=== PATIENT | female | born 1940 | race Caucasian/White ===

== ENCOUNTER 2020-08-30 01:24 | Inpatient (IN) | payer MEDICARE, MEDICAID, SELFPAY ==
[2020-08-30] VITALS (14 sets, daily range): BP systolic 89–129; BP diastolic 33–66; PULSE 63–82; RESP 13–20; TEMP 36.3–36.7; O2SAT 92–99; BMI 27.8
--- NOTE | ~2020-08-30 | XR_ITS ---
EXAMINATION: XR CHEST CLINICAL INFORMATION: CHF COMPARISON: 11/15/2009 TECHNIQUE: Frontal view of the chest was obtained. FINDINGS: Lung volumes are low. Patient is rotated to the left which somewhat limits the assessment. Cardiac silhouette is within normal limits for technique. There is mild bibasilar atelectasis. Possible trace right pleural effusion. Pulmonary vasculature is unremarkable. No appreciable pulmonary edema. No pneumothorax or dense airspace consolidation. Degenerative disc disease is present in the thoracic spine. Bones are osteopenic. XR/XR chest 1V IMPRESSION: Low lung volumes with bibasilar atelectasis. Possible trace right pleural effusion.
--- NOTE | ~2020-08-30 | CT_ITS ---
EXAMINATION: CT ANGIOGRAM OF THE CHEST WITH AND WITHOUT CONTRAST (CT PULMONARY ANGIOGRAM FOR PE) CLINICAL INFORMATION: acute shortness of breath COMPARISON: None TECHNIQUE: Prior to contrast administration, noncontrast localization images were obtained. Subsequently, multidetector volumetric imaging was performed from the thoracic inlet to below the diaphragms following the administration of 65 mL Omnipaque 350 intravenous contrast. No contrast reaction reported Sagittal, coronal, and MIP oblique sagittal reformatted images were obtained on the CT workstation, uploaded to PACS, and reviewed. This CT examination was performed using dose optimization techniques as appropriate, variously including the following: *Automated exposure control *Adjustment of mA and/or kV according to patient size (this includes techniques or standardized protocols for targeted exams where dose is matched to indication/reason for exam; i.e. extremities or head) *Use of iterative reconstruction technique Total exam dose-length product 1513 mGy-cm FINDINGS: QUALITY OF STUDY/CONTRAST BOLUS: Satisfactory. PULMONARY ARTERIES: No central or segmental pulmonary emboli. THORACIC AORTA: No aneurysm or dissection. Calcific atherosclerosis is present throughout the thoracic aorta. LUNG: Mild centrilobular pulmonary emphysema. There is bibasilar segmental atelectasis in the lower lobes, left greater than right. No definite superimposed consolidation. Central airways are clear. PLEURA: No pleural effusion or pneumothorax. MEDIASTINUM: Normal thyroid gland. Heart is normal in size. Atherosclerotic calcifications are present in the coronary arteries. No mediastinal or hilar adenopathy. Moderate-sized hiatal hernia. No evidence of septal bowing or right heart strain. CHEST WALL/AXILLA: No axillary or internal mammary lymphadenopathy. OSSEOUS STRUCTURES: Bones are osteopenic. There are chronic appearing compression deformities at the superior endplates of T9, T10, T11, and T12. Superior endplate compression deformity at T4 is more age-indeterminate, though also favored to be chronic. No acute rib fractures are identified. UPPER ABDOMEN: Multiple discretely marginated hepatic hypodensities are favored to correspond to cysts. The largest of these is a 2.4 cm within hepatic segments 6/7 medially near the caudate lobe. No acute intra-abdominal findings. No reflux of contrast into the hepatic veins to suggest elevated right heart pressures. CT/CT angio chest PE protocol IMPRESSION: 1. No evidence of pulmonary emboli. 2. Dependent segmental atelectasis in the lower lobes bilaterally, left greater than right. No appreciable superimposed consolidation. 3. Mild centrilobular pulmonary emphysema. 4. Moderate-sized hiatal hernia. VTE: negative
--- NOTE | ~2020-08-30 | CT_ITS ---
EXAMINATION: CT HEAD WITHOUT CONTRAST CLINICAL INFORMATION: Unresponsive episode COMPARISON: Previous head CT November 2009 TECHNIQUE: Contiguous axial imaging was performed from the skull base to vertex without intravenous administration of contrast. This CT examination was performed using dose optimization techniques as appropriate, variously including the following: *Automated exposure control *Adjustment of mA and/or kV according to patient size (this includes techniques or standardized protocols for targeted exams where dose is matched to indication/reason for exam; i.e. extremities or head) *Use of iterative reconstruction technique DLP: 681 mGy-cm FINDINGS: There is no evidence of an extra-axial collection. There is no evidence of intra-axial or extra-axial hemorrhage. The ventricles and extra-axial CSF spaces are prominent suggestive of mild generalized atrophy. There is nonspecific periventricular white matter disease. No mass, mass effect or infarct is seen. The osseous structures and soft tissues are normal. The mastoid air cells and visualized portions of the paranasal sinuses are well aerated. CT/CT head/brain wo con IMPRESSION: No acute intracranial pathology. Generalized atrophy and nonspecific periventricular white matter disease.
--- NOTE | 2020-08-30 01:41 | PC.NURSE ---
ON BASELINE 02 SATURATION DECREASED TO 89%. PT SWITCHED TO VENTI MASK. TITRATED FOR SAT ABOVE 89%. pT SATING AT 91% VIA 12L AT 50%.
--- NOTE | 2020-08-30 01:55 | ED.SOB ---
HPI - SOB/Dyspnea General Chief Complaint: Dyspnea Stated Complaint: SOB PER SNF Time Seen by Provider: 08/30/20 01:55 Source: EMS and RN notes reviewed Mode of arrival: EMS History of Present Illness HPI Narrative: patient 80 years old DNR DNI from intermediate with history of COPD , paranoid schizophrenia, hypertension , dementia sent from intermediate for increased shortness of breath and decreased responsiveness and short of breath for last few hours chest x-ray was done which showed CHF when patient came she was saturating 88% on 1.5 L oxygen which she usually be on at intermediate blood pressure dropped to 84/51. At intermediate patient was given p.o. Lasix and Levaquin 250 mg which she choked and coughed it out no fever noticed on arrival Related Data Home Medications Medication Instructions Recorded Confirmed Al- w/ CLAU 08/30/20 08/30/20 acetaminophen 650 mg WV Q6H PRN 08/30/20 08/30/20 acetaminophen [Tylenol] 650 mg PO Q6H PRN 08/30/20 08/30/20 albuterol sulfate 2 inh INHALATION QID PRN 08/30/20 08/30/20 aspirin 81 mg PO DAILY 08/30/20 08/30/20 bisacodyl 10 mg W[place] DAILY PRN 08/30/20 08/30/20 clonazepam [Klonopin] 1 mg PO BEDTIME 08/30/20 08/30/20 furosemide [Lasix] 20 mg PO DAILY 08/30/20 08/30/20 gabapentin 400 mg PO BID 08/30/20 08/30/20 lamotrigine 75 mg PO BID 08/30/20 08/30/20 levofloxacin [Levaquin] 250 mg PO DAILY 08/30/20 08/30/20 magnesium hydroxide [Milk of 30 ml PO DAILY PRN 08/30/20 08/30/20 Magnesia] olanzapine [Zyprexa] 10 mg PO DAILY 08/30/20 08/30/20 olanzapine [Zyprexa] 20 mg PO QPM 08/30/20 08/30/20 phenytoin [Dilantin Infatabs] 300 mg PO DAILY 08/30/20 08/30/20 polyethylene glycol 3350 17 g PO DAILY 08/30/20 08/30/20 risperidone 2 mg PO BID 08/30/20 08/30/20 risperidone microspheres 50 mg IM Q14D 08/30/20 08/30/20 [Risperdal Consta] Allergies Allergy/AdvReac Type Severity Reaction Status Date / Time divalproex sodium Allergy Unknown UNKNOWN Unverified 11/18/19 14:33 [From Depakote] Review of Systems Review of Systems: Yes Unobtainable due to mental status ( dementia) FOR[facility]LY [facility] Past Medical History Medical History (Updated 08/30/20 @ 04:55 by Luis Fernando Choi MD) Atherosclerotic heart disease of [place] coronary artery with unspecified angina pectoris Bilateral cataracts Candidiasis of skin and nail Constipation COPD (chronic obstructive pulmonary disease) COVID-19 vaccine administered Degenerative disease of nervous system Diaphragmatic hernia DNI (do not intubate) DNR (do not resuscitate) Dysphagia Essential tremor Family history of diseases of the blood and blood-forming organs and certain disorders involving the immune mechanism GERD (gastroesophageal reflux disease) HTN (hypertension) Hyperlipidemia Incontinence Iron deficiency anemia Overactive bladder Paranoid schizophrenia Postmenopausal atrophic vaginitis Urinary tract infection Urine retention Vitamin B12 deficiency (dietary) anemia Vitamin D deficiency Social History Social History Advance Directives: No Advance Directives Information Provided: No Physical Exam Vital Signs: Vital Signs: Last Vital Signs Pulse 72 08/30/20 03:52 Resp 18 08/30/20 01:29 BP 129/54 L 08/30/20 01:29 Pulse Ox 94 08/30/20 01:29 Body Mass Index 27.8 Appearance: Alert. Oriented X2. moderate respiratory distress on Ventimask saturating 94% on 45% Eyes: PERRLA, No Nystagmus ENT: Pharynx normal. Oral Mucosa moist Neck: Normal inspection. Neck supple. CVS: Normal heart rate and rhythm. Pulses normal. Respiratory: moderate respiratory distress. Equal air entry bilateral, diffuse crackles bilaterally with wheezing Abdomen: Soft and nontender. Bowel sounds are present, no mass palpable, no CVA tenderness Skin: Skin warm and dry. Normal skin color. Normal skin turgor. Extremities: No lower extremity edema. No calf tenderness Neuro: Oriented X 3. No motor deficit. No sensory deficit.No cerebellar signs , cranial nerves II-XII intact MDM - SOB/Dyspnea MDM Narrative Medical decision making narrative: patient with acute increase in shortness of breath with normal BNP no history of CHF in the past chest x-ray with mild congestion? and left pleural effusion. Will get CTA chest to rule out PE CTA chest negative for PE showed atelectasis at bases will admit patient for COPD exacerbation possible aspiration pneumonia Differential Diagnosis Differential diagnosis: Likely acute exacerbation of chronic obstructive airways disease and congestive heart failure Lab Data Attestation: I reviewed the patient's lab results. Result diagrams: 08/30/20 01:56 08/30/20 01:56 Labs: Lab Results 08/30/20 08/30/20 08/30/20 Range/Units 01:56 01:56 01:56 WBC 8.9 (4.8-10.8) X10*3/uL RBC 3.75 L (4.20-5.50) X10*6/uL Hgb 11.8 L (12.0-16.0) g/dl Hct 37.8 (37-47) % MCV 100.8 H (80-98) fL MCH 31.5 (27.0-33.0) pg MCHC 31.2 (31.0-35.0) g/dl RDW 13.6 (11.0-16.0) % Plt Count 190 (160-400) X10*3/uL MPV 10.2 (9.4-12.3) fL Immature Gran % (Auto) 0.3 (0.0-0.4) % Neut % (Auto) 53.2 (45-73) % Lymph % (Auto) 31.9 (20-40) % Leslie % (Auto) 12.4 H (2-11) % Eos % (Auto) 2.0 (0-4) % Baso % (Auto) 0.2 (0-2) % Lymph # (Auto) 2.8 (1.2-4.9) X10*3/uL Leslie # (Auto) 1.1 (0.1-1.2) X10*3/uL Eos # (Auto) 0.2 (0.0-0.4) X10*3/uL Baso # (Auto) 0.0 (0.0-0.2) X10*3/uL Abs Immat Gran (auto) 0.03 (0.00-0.03) X10*3/uL Absolute Neuts (auto) 4.7 (2.0-8.3) X10*3/uL Absolute Nucleated RBC 0.000 (0.0-0.012) X10*3/uL Nucleated RBC % (auto) 0.0 (0.0-0.2) /100WBC VBG pH (7.32-7.43) VBG pCO2 mmHg VBG pO2 mmHg VBG HCO3 (22-26) mmol/L VBG O2 Saturation % VBG Base Excess mmol/L Sodium 144 (135-145) mmol/L Potassium 4.2 (3.3-5.1) mmol/L Chloride 105 (96-108) mmol/L Carbon Dioxide 31 H (22-29) mmol/L Anion Gap 12 (12-20) BUN 15 (9-16) mg/dL Creatinine 0.71 (0.5-1.4) mg/dL Estim Creat Clear Calc 51.3 Estimated GFR > 60 Random Glucose 92 (60-115) mg/dL Lactic Acid (0.5-2.0) mmol/L Calcium 8.6 (8.4-10.2) mg/dL Total Bilirubin 0.3 (0.0-1.0) mg/dL AST 18 (5-31) U/L ALT 13 (0-31) U/L Alkaline Phosphatase 159 H (39-117) U/L Troponin I High Sens 6.6 (<3.5-17.0) ng/L B-Natriuretic Peptide 20 (<100) pg/mL Total Protein 6.6 (6.5-8.0) g/dL Albumin 3.6 (3.5-5.0) g/dL Urine Color Urine Appearance Urine pH (5.0-8.0) Ur Specific [place] (1.005-1.025) Urine Protein (NEG-TRACE) MG/DL Urine Glucose (UA) (NEG) MG/DL Urine Ketones (NEG) MG/DL Urine Blood (NEG) Urine Nitrite (NEG) Ur Leukocyte Esterase (NEG) Urine RBC (0) /HPF Urine WBC (0-4) /HPF Ur Squamous Epith Cells /LPF Urine Bacteria /LPF Urine Mucus /LPF Phenytoin 10.4 (10.0-20.0) ug/mL COVID-19 (RODGER) (Negative) COVID-19 Clin Com 08/30/20 08/30/20 08/30/20 Range/Units 01:56 01:56 02:45 WBC (4.8-10.8) X10*3/uL RBC (4.20-5.50) X10*6/uL Hgb (12.0-16.0) g/dl Hct (37-47) % MCV (80-98) fL MCH (27.0-33.0) pg MCHC (31.0-35.0) g/dl RDW (11.0-16.0) % Plt Count (160-400) X10*3/uL MPV (9.4-12.3) fL Immature Gran % (Auto) (0.0-0.4) % Neut % (Auto) (45-73) % Lymph % (Auto) (20-40) % Leslie % (Auto) (2-11) % Eos % (Auto) (0-4) % Baso % (Auto) (0-2) % Lymph # (Auto) (1.2-4.9) X10*3/uL Leslie # (Auto) (0.1-1.2) X10*3/uL Eos # (Auto) (0.0-0.4) X10*3/uL Baso # (Auto) (0.0-0.2) X10*3/uL Abs Immat Gran (auto) (0.00-0.03) X10*3/uL Absolute Neuts (auto) (2.0-8.3) X10*3/uL Absolute Nucleated RBC (0.0-0.012) X10*3/uL Nucleated RBC % (auto) (0.0-0.2) /100WBC VBG pH (7.32-7.43) VBG pCO2 mmHg VBG pO2 mmHg VBG HCO3 (22-26) mmol/L VBG O2 Saturation % VBG Base Excess mmol/L Sodium (135-145) mmol/L Potassium (3.3-5.1) mmol/L Chloride (96-108) mmol/L Carbon Dioxide (22-29) mmol/L Anion Gap (12-20) BUN (9-16) mg/dL Creatinine (0.5-1.4) mg/dL Estim Creat Clear Calc Estimated GFR Random Glucose (60-115) mg/dL Lactic Acid 0.6 (0.5-2.0) mmol/L Calcium (8.4-10.2) mg/dL Total Bilirubin (0.0-1.0) mg/dL AST (5-31) U/L ALT (0-31) U/L Alkaline Phosphatase (39-117) U/L Troponin I High Sens (<3.5-17.0) ng/L B-Natriuretic Peptide (<100) pg/mL Total Protein (6.5-8.0) g/dL Albumin (3.5-5.0) g/dL Urine Color YELLOW Urine Appearance CLOUDY Urine pH 7.0 (5.0-8.0) Ur Specific [place] 1.015 (1.005-1.025) Urine Protein TRACE (NEG-TRACE) MG/DL Urine Glucose (UA) NEG (NEG) MG/DL Urine Ketones NEG (NEG) MG/DL Urine Blood NEG (NEG) Urine Nitrite NEG (NEG) Ur Leukocyte Esterase 2+ H (NEG) Urine RBC 1-4 (0) /HPF Urine WBC 10-14 H (0-4) /HPF Ur Squamous Epith Cells 2+ /LPF Urine Bacteria 4+ /LPF Urine Mucus 1+ /LPF Phenytoin (10.0-20.0) ug/mL COVID-19 ([facility]GER) Negative (Negative) COVID-19 Clin Com See Note 08/30/20 Range/Units 02:47 WBC (4.8-10.8) X10*3/uL RBC (4.20-5.50) X10*6/uL Hgb (12.0-16.0) g/dl Hct (37-47) % MCV (80-98) fL MCH (27.0-33.0) pg MCHC (31.0-35.0) g/dl RDW (11.0-16.0) % Plt Count (160-400) X10*3/uL MPV (9.4-12.3) fL Immature Gran % (Auto) (0.0-0.4) % Neut % (Auto) (45-73) % Lymph % (Auto) (20-40) % Leslie % (Auto) (2-11) % Eos % (Auto) (0-4) % Baso % (Auto) (0-2) % Lymph # (Auto) (1.2-4.9) X10*3/uL Leslie # (Auto) (0.1-1.2) X10*3/uL Eos # (Auto) (0.0-0.4) X10*3/uL Baso # (Auto) (0.0-0.2) X10*3/uL Abs Immat Gran (auto) (0.00-0.03) X10*3/uL Absolute Neuts (auto) (2.0-8.3) X10*3/uL Absolute Nucleated RBC (0.0-0.012) X10*3/uL Nucleated RBC % (auto) (0.0-0.2) /100WBC VBG pH 7.42 (7.32-7.43) VBG pCO2 54 mmHg VBG pO2 116 mmHg VBG HCO3 36 H (22-26) mmol/L VBG O2 Saturation 98.0 % VBG Base Excess 9.8 mmol/L Sodium (135-145) mmol/L Potassium (3.3-5.1) mmol/L Chloride (96-108) mmol/L Carbon Dioxide (22-29) mmol/L Anion Gap (12-20) BUN (9-16) mg/dL Creatinine (0.5-1.4) mg/dL Estim Creat Clear Calc Estimated GFR Random Glucose (60-115) mg/dL Lactic Acid (0.5-2.0) mmol/L Calcium (8.4-10.2) mg/dL Total Bilirubin (0.0-1.0) mg/dL AST (5-31) U/L ALT (0-31) U/L Alkaline Phosphatase (39-117) U/L Troponin I High Sens (<3.5-17.0) ng/L B-Natriuretic Peptide (<100) pg/mL Total Protein (6.5-8.0) g/dL Albumin (3.5-5.0) g/dL Urine Color Urine Appearance Urine pH (5.0-8.0) Ur Specific [place] (1.005-1.025) Urine Protein (NEG-TRACE) MG/DL Urine Glucose (UA) (NEG) MG/DL Urine Ketones (NEG) MG/DL Urine Blood (NEG) Urine Nitrite (NEG) Ur Leukocyte Esterase (NEG) Urine RBC (0) /HPF Urine WBC (0-4) /HPF Ur Squamous Epith Cells /LPF Urine Bacteria /LPF Urine Mucus /LPF Phenytoin (10.0-20.0) ug/mL COVID-19 ([facility]GER) (Negative) COVID-19 Clin Com ECG Data Attestation: I personally reviewed and interpreted this ECG as follows: Interpretation: normal sinus rhythm heart rate 77 beats per minute poor progression of R-wave no acute ST T wave changes no acute ischemia Discharge Plan Discharge Clinical Impression: Acute exacerbation of chronic obstructive airways disease Aspiration pneumonia Qualifiers: Aspiration pneumonia type: unspecified Laterality: bilateral Lung location: lower lobe of lung Qualified Code(s): J69.0 - Pneumonitis due to inhalation of food and vomit Patient Disposition: Admitted As Inpatient
[2020-08-30 02:05] LABS: MANUAL DIFF FLAG NO
[2020-08-30 02:06] LABS: Basophils Percent Auto 0.2 % (0-2); Eosinophils Absolute Auto 0.2 X10*3/uL (0.0-0.4); Hematocrit 37.8 % (37-47); Hemoglobin 11.8 g/dl (12.0-16.0); Imm Gran Abs Auto 0.03 X10*3/uL (0.00-0.03); Imm Gran Pct Auto 0.3 % (0.0-0.4); Lymphocytes Absolute Auto 2.8 X10*3/uL (1.2-4.9); Lymphocytes Percent Auto 31.9 % (20-40); Mean Corpuscular HGB Conc 31.2 g/dl (31.0-35.0); Mean Corpuscular Hemoglobin 31.5 pg (27.0-33.0); Mean Corpuscular Volume 100.8 fL (80-98); Mean Platelet Volume 10.2 fL (9.4-12.3); Monocytes Absolute Auto 1.1 X10*3/uL (0.1-1.2); Monocytes Percent Auto 12.4 % (2-11); Neutrophils Absolute Auto 4.7 X10*3/uL (2.0-8.3); Neutrophils Percent Auto 53.2 % (45-73); Platelet Count 190 X10*3/uL (160-400); Red Blood Count 3.75 X10*6/uL (4.20-5.50); Red Cell Distribution Width 13.6 % (11.0-16.0); White Blood Count 8.9 X10*3/uL (4.8-10.8)
--- NOTE | 2020-08-30 02:12 | ECG_ITS ---
Test Reason : SOB Blood Pressure : / mmHG Vent. Rate : 077 BPM Atrial Rate : 077 BPM P-R Int : 156 ms QRS Dur : 080 ms QT Int : 388 ms P-R-T Axes : 023 018 051 degrees QTc Int : 439 ms Normal sinus rhythm Inferior infarct , age undetermined Anteroseptal infarct , age undetermined Abnormal ECG When compared with ECG of 15-NOV-2009 16:45, Premature atrial complexes are no longer Present Anteroseptal infarct is now Present Nonspecific T wave abnormality has replaced inverted T waves in Inferior leads Nonspecific T wave abnormality now evident in Anterior leads Referred By: Luis Fernando Choi Electronically Signed By:FLORENTIN CORADO MD
[2020-08-30 02:22] LABS: COVID-19 Test Negative (Negative); IDNOW Serial# 9DD0AD1C
[2020-08-30] MEDS: Furosemide 20 MG/2 ML VIAL IVPUSH (02:30)
[2020-08-30 02:31] LABS: Lactic Acid 0.6 mmol/L (0.5-2.0)
[2020-08-30 02:39] LABS: Alanine Aminotransferase 13 U/L (0-31); Albumin Level 3.6 g/dL (3.5-5.0); Alkaline Phosphatase 159 U/L (39-117); Anion Gap 12 (12-20); Aspartate Amino Transferase 18 U/L (5-31); Bilirubin Total 0.3 mg/dL (0.0-1.0); Blood Urea Nitrogen 15 mg/dL (9-16); Calcium 8.6 mg/dL (8.4-10.2); Carbon Dioxide 31 mmol/L (22-29); Chloride 105 mmol/L (96-108); Creatinine Clr Calc Pharmacy 51.3; Estimated Glomerular Filt Rate > 60; Glucose Random 92 mg/dL (60-115); Potassium 4.2 mmol/L (3.3-5.1); Sodium 144 mmol/L (135-145); Total Protein 6.6 g/dL (6.5-8.0)
[2020-08-30 02:42] LABS: B Type Natriuretic Peptide 20 pg/mL (<100); Troponin-I High Sensitivity 6.6 ng/L (<3.5-17.0)
[2020-08-30 02:55] LABS: Glucose Urine UA NEG (NEG); Leukocyte Esterase Urine 2+ (NEG); Nitrite Urine NEG (NEG); Specific Gravity - Urine 1.015 (1.005-1.025); UACC Culture Trigger YES; Urine Blood NEG (NEG); Urine Ketones NEG (NEG); Urine Protein TRACE MG/DL (NEG-TRACE)
[2020-08-30 02:56] LABS: Appearance Urine CLOUDY; Color Urine YELLOW
[2020-08-30 02:58] LABS: Venous Blood Gas Refer to POC result
[2020-08-30 02:59] LABS: VBG Base Excess 9.8 mmol/L; VBG HCO3 36 mmol/L (22-26); VBG pCO2 54 mmHg; VBG pH 7.42 (7.32-7.43); VBG pO2 116 mmHg
[2020-08-30 03:01] LABS: Bacteria Urine 4+ /LPF; Mucus Urine 1+ /LPF; Squamous Epithelial Cell Urine 2+ /LPF
--- NOTE | 2020-08-30 03:38 | PC.NURSE ---
REPORT FROM YOEL OLIVARES AT 03:00
[2020-08-30 03:40] LABS: Phenytoin Dilantin 10.4 ug/mL (10.0-20.0)
[2020-08-30] MEDS: Albuterol/Iprat 2.5/0.5MG 3 ML AMPUL.NEB INHALE ×5 (03:49→19:35)
[2020-08-30] MEDS: iohexoL 350 MG/ML 100 ML INFUS..BTL 65 ML IV (03:52)
--- NOTE | 2020-08-30 05:04 | PC.NURSE ---
pt on venti mask at 4l/30 %. pt sleeping, spo2 84%. once pt is awake, spo2 improves to 95%.
[2020-08-30] MEDS: Piperacillin Sodium/Tazobactam 3.375 GM in 0.9 % Sodium Chloride 50 ML IV (05:06)
[2020-08-30] MEDS: methylPREDNISolone Sod Succ 125 MG/2 ML VIAL 60 MG IVPUSH (05:06)
--- NOTE | 2020-08-30 05:18 | PC.NURSE ---
er aware pt's map below 60.
[2020-08-30] MEDS: 0.9 % Sodium Chloride 1,000 ML 999 ML IVCONT (05:26)
--- NOTE | 2020-08-30 06:10 | PC.NURSE ---
HOSPITALIST SPEAKING TO DAUGHTER BY PHONE, REPORTS THAT AT BASELINE PATIENT IS AWAKE AND ALERT, ABLE TO CARRY ON A CONVERSATION AND DOES TAKE P.O. MEDICATIONS WITHOUT A PROBLEM. FAMILY OK WITH PATIENT BEING ADMITTED. PT DIFFICULT TO WAKE, WILL NOT ANSWER QUESTIONS OR STAY AWAKE FOR HOSPITALIST.
--- NOTE | 2020-08-30 06:13 | P.HPHOSP_ITS ---
History of Present Illness Date of Service: 08/30/20 Chief Complaint: unresponsive 78-year-old female with extensive past medical history that includes COPD, dysphagia, HTN, CAD, paranoid schizophrenia, among others who presents to the hospital from SNF due to decreased responsiveness for 3-4 hours. Patient herself is very somnolent, very difficult to arouse, apparently when she came into the ED she was more responsive but right now she is not talking. I called her daughter she said she has schizophrenia at baseline but usually converses normally. According to the notes from [facility] patient was treated for CHF after an x-ray was done yesterday showing pulmonary congestion. on her arrival to the ED patient hemodynamically stable with no significant abnormal vitals. Patient did desatted to the 80s while in the ED, she is now on 4 L of Venturi mask. Labs are significant for WBC count of 8.9, hemoglobin of 11.8, VBG that shows pH of 7.42, CO2 of 54, otherwise unremarkable. BNP of 20. UA shows leukocyte Estrace and WBC, chest CT angiogram shows no evidence of pulmonary emboli. Dependent segmental atelectasis in the lower lobes bilaterally, left greater than right, no appreciable superimposed consolidation, mild central lobar pulmonary is emphysema, hiatal hernia patient initially was given 20 mg of IV Lasix but after the CT results patient now given IV bolus as she also developed hypotension unable to review of system is patient on responsive Review of Systems Review of Systems: Yes all other systems are reviewed and are negative [facility] Medical History Atherosclerotic heart disease of [place] coronary artery with unspecified angina pectoris Bilateral cataracts Candidiasis of skin and nail Constipation COPD (chronic obstructive pulmonary disease) COVID-19 vaccine administered Degenerative disease of nervous system Diaphragmatic hernia DNI (do not intubate) DNR (do not resuscitate) Dysphagia Essential tremor Family history of diseases of the blood and blood-forming organs and certain disorders involving the immune mechanism GERD (gastroesophageal reflux disease) HTN (hypertension) Hyperlipidemia Incontinence Iron deficiency anemia Overactive bladder Paranoid schizophrenia Postmenopausal atrophic vaginitis Urinary tract infection Urine retention Vitamin B12 deficiency (dietary) anemia Vitamin D deficiency Social History Advance Directives: No Advance Directives Information Provided: No Meds Allergies Allergy/AdvReac Type Severity Reaction Status Date / Time divalproex sodium Allergy Unknown UNKNOWN Verified 08/30/20 06:22 [From Depakote] Active Medications: Current Medications Generic Name Dose Route Start Last Admin Trade Name Freq PRN Reason Stop Dose Admin Acetaminophen 650 mg 08/30/20 05:18 Acetaminophen 325 Mg Tablet PO Q6H PRN Pain, Mild (Pain Scale 1-3) Albuterol Sulfate 2 puff 08/30/20 05:18 Albuterol Sulfate 90 Mcg 8 Gm Inhaler INHALE QID PRN Wheezing Albuterol/Ipratropium 3 ml 08/30/20 08:00 Albuterol/Iprat 2.5/0.5mg 3 Ml Ampul.Neb INHALE RQ4H WHILE AWAKE CHLOE Albuterol/Ipratropium 3 ml 08/30/20 05:18 Albuterol/Iprat 2.5/0.5mg 3 Ml Ampul.Neb INHALE RQ4H PRN Shortness of Breath/Wheezing Aspirin 81 mg 08/30/20 09:00 Aspirin 81 Mg Tab.Chew PO DAILY CHLOE Bisacodyl 10 mg 08/30/20 05:18 Bisacodyl 10 Mg Supp.Rect [place] DAILY PRN Constipation Clonazepam 1 mg 08/30/20 21:00 Clonazepam 1 Mg Tablet PO BEDTIME CHLOE Docusate Sodium 100 mg 08/30/20 05:18 Docusate Sodium 100 Mg Capsule PO DAILY PRN Constipation Gabapentin 400 mg 08/30/20 09:00 Gabapentin 400 Mg Capsule PO BID [facility] Heparin Sodium (Porcine) 5,000 unit 08/30/20 07:00 Heparin Sodium,Porcine 5,000 Unit/Ml Vial SUBCUT Q12H [facility] Sodium Chloride 1,000 mls @ 999 mls/hr 08/30/20 05:30 08/30/20 05:26 Ns IVCONT 08/30/20 06:30 999 mls/hr .Q1H1M CHLOE Administration Lamotrigine 75 mg 08/30/20 09:00 Lamotrigine 25 Mg Tablet PO BID [facility]LOE Levofloxacin 250 mg 08/30/20 09:00 Levofloxacin 250 Mg Tablet PO DAILY [facility]LOE Magnesium Hydroxide 30 ml 08/30/20 05:18 Milk Of Magnesia 30 Ml Oral.Susp PO DAILY PRN Constipation Methylprednisolone Sodium Succinate 40 mg 08/30/20 17:00 Methylprednisolone Sod Succ 40 Mg/Ml Vial IVPUSH Q12H [facility] Non-Formulary Medication 50 mg 08/30/20 05:18 Risperidone Microspheres [Risperdal Consta] IM Q14D [facility] Olanzapine 10 mg 08/30/20 09:00 Olanzapine 10 Mg Tablet PO DAILY [facility] Olanzapine 20 mg 08/30/20 21:00 Olanzapine 10 Mg Tablet PO BEDTIME [facility] Ondansetron HCl 4 mg 08/30/20 05:18 Ondansetron Hcl 4 Mg/2 Ml Vial IVPUSH Q8H PRN Nausea and Vomiting Phenytoin 300 mg 08/30/20 09:00 Phenytoin Chewable 50 Mg Tab.Chew PO DAILY [facility] Polyethylene Glycol 17 gm 08/30/20 09:00 Polyethylene Glycol 3350 17 Gm Powd.Pack PO DAILY [facility] Risperidone 2 mg 08/30/20 09:00 Risperidone 2 Mg Tablet PO BID [facility] Sodium Chloride 3 ml 08/30/20 08:00 0.9 % Sodium Chloride Flush 3 Ml Syringe IVFLUSH QSHIFT [facility] Home Medications Medication Instructions Recorded Confirmed Last Taken Type Al-Mag w/ SIM 08/30/20 08/30/20 Unknown History acetaminophen 650 mg IL Q6H PRN 08/30/20 08/30/20 Unknown History acetaminophen [Tylenol] 650 mg PO Q6H PRN 08/30/20 08/30/20 Unknown History albuterol sulfate 2 inh INHALATION QID PRN 08/30/20 08/30/20 Unknown History aspirin 81 mg PO DAILY 08/30/20 08/30/20 Unknown History bisacodyl 10 mg [place] DAILY PRN 08/30/20 08/30/20 Unknown History clonazepam [Klonopin] 1 mg PO BEDTIME 08/30/20 08/30/20 Unknown History furosemide [Lasix] 20 mg PO DAILY 08/30/20 08/30/20 Unknown History gabapentin 400 mg PO BID 08/30/20 08/30/20 Unknown History lamotrigine 75 mg PO BID 08/30/20 08/30/20 Unknown History levofloxacin [Levaquin] 250 mg PO DAILY 08/30/20 08/30/20 Unknown History magnesium hydroxide [Milk of 30 ml PO DAILY PRN 08/30/20 08/30/20 Unknown History Magnesia] olanzapine [Zyprexa] 10 mg PO DAILY 08/30/20 08/30/20 Unknown History olanzapine [Zyprexa] 20 mg PO QPM 08/30/20 08/30/20 Unknown History phenytoin [Dilantin Infatabs] 300 mg PO DAILY 08/30/20 08/30/20 Unknown History polyethylene glycol 3350 17 g PO DAILY 08/30/20 08/30/20 Unknown History risperidone 2 mg PO BID 08/30/20 08/30/20 Unknown History risperidone microspheres 50 mg IM Q14D 08/30/20 08/30/20 Unknown History [Risperdal Consta] Physical Exam 2 Vital Signs and Narrative: Vital Signs: Last Vital Signs Pulse 78 08/30/20 05:16 Resp 17 08/30/20 05:16 BP 97/41 L 08/30/20 05:16 Pulse Ox 92 08/30/20 05:16 Body Mass Index 27.8 Const: Other: very somnolent, difficult to arouse Eyes: General: appearance normal, both eyes and all related structures Resp: Effort & Inspection: normal respiratory effort, able to speak in complete sentences and abnormal respiratory pattern Cardio: Rate: regular rate Rhythm: regular rhythm GI: Palpation (GI): Soft to palpation Auscultation: normal bowel sounds Skin: General skin exam: no rashes or lesions noted Neuro: Cognition (Neuro): normal cognition Extrem: General: Yes normal to inspection and Yes no pedal edema Results Labs CBC and Chem 7: 08/30/20 01:56 08/30/20 01:56 Labs: Laboratory Results - last 24 hr 08/30/20 08/30/20 08/30/20 01:56 01:56 01:56 MCV 100.8 H MCH 31.5 MCHC 31.2 RDW 13.6 Plt Count 190 MPV 10.2 Immature Gran % (Auto) 0.3 Neut % (Auto) 53.2 Lymph % (Auto) 31.9 [place] % (Auto) 12.4 H Eos % (Auto) 2.0 Baso % (Auto) 0.2 Lymph # (Auto) 2.8 [place] # (Auto) 1.1 Eos # (Auto) 0.2 Baso # (Auto) 0.0 Abs Immat Gran (auto) 0.03 Absolute Neuts (auto) 4.7 Absolute Nucleated RBC 0.000 Nucleated RBC % (auto) 0.0 VBG pH VBG pCO2 VBG pO2 VBG HCO3 VBG O2 Saturation VBG Base Excess Anion Gap 12 Estim Creat Clear Calc 51.3 Estimated GFR > 60 Random Glucose 92 Lactic Acid Calcium 8.6 Total Bilirubin 0.3 AST 18 ALT 13 Alkaline Phosphatase 159 H Troponin I High Sens 6.6 B-Natriuretic Peptide 20 Total Protein 6.6 Albumin 3.6 Urine Color Urine Appearance Urine pH Ur Specific [place] Urine Protein Urine Glucose (UA) Urine Ketones Urine Blood Urine Nitrite Ur Leukocyte Esterase Urine RBC Urine WBC Ur Squamous Epith Cells Urine Bacteria Urine Mucus Phenytoin 10.4 COVID-19 ([facility]) COVID-19 Clin Com 08/30/20 08/30/20 08/30/20 01:56 01:56 02:45 MCV MCH MCHC RDW Plt Count MPV Immature Gran % (Auto) Neut % (Auto) Lymph % (Auto) [place] % (Auto) Eos % (Auto) Baso % (Auto) Lymph # (Auto) [place] # (Auto) Eos # (Auto) Baso # (Auto) Abs Immat Gran (auto) Absolute Neuts (auto) Absolute Nucleated RBC Nucleated RBC % (auto) VBG pH VBG pCO2 VBG pO2 VBG HCO3 VBG O2 Saturation VBG Base Excess Anion Gap Estim Creat Clear Calc Estimated GFR Random Glucose Lactic Acid 0.6 Calcium Total Bilirubin AST ALT Alkaline Phosphatase Troponin I High Sens B-Natriuretic Peptide Total Protein Albumin Urine Color YELLOW Urine Appearance CLOUDY Urine pH 7.0 Ur Specific [place] 1.015 Urine Protein TRACE Urine Glucose (UA) NEG Urine Ketones NEG Urine Blood NEG Urine Nitrite NEG Ur Leukocyte Esterase 2+ H Urine RBC 1-4 Urine WBC 10-14 H Ur Squamous Epith Cells 2+ Urine Bacteria 4+ Urine Mucus 1+ Phenytoin COVID-19 ([facility]) Negative COVID-19 Clin Com See Note 08/30/20 02:47 MCV MCH MCHC RDW Plt Count MPV Immature Gran % (Auto) Neut % (Auto) Lymph % (Auto) [place] % (Auto) Eos % (Auto) Baso % (Auto) Lymph # (Auto) [place] # (Auto) Eos # (Auto) Baso # (Auto) Abs Immat Gran (auto) Absolute Neuts (auto) Absolute Nucleated RBC Nucleated RBC % (auto) VBG pH 7.42 VBG pCO2 54 VBG pO2 116 VBG HCO3 36 H VBG O2 Saturation 98.0 VBG Base Excess 9.8 Anion Gap Estim Creat Clear Calc Estimated GFR Random Glucose Lactic Acid Calcium Total Bilirubin AST ALT Alkaline Phosphatase Troponin I High Sens B-Natriuretic Peptide Total Protein Albumin Urine Color Urine Appearance Urine pH Ur Specific [place] Urine Protein Urine Glucose (UA) Urine Ketones Urine Blood Urine Nitrite Ur Leukocyte Esterase Urine RBC Urine WBC Ur Squamous Epith Cells Urine Bacteria Urine Mucus Phenytoin COVID-19 ([facility]) COVID-19 Clin Com Imaging Radiologist's Impressions: Impressions Chest X-Ray 08/30/20 02:14 IMPRESSION: Low lung volumes with bibasilar atelectasis. Possible trace right pleural effusion. Chest CTA 08/30/20 03:00 IMPRESSION: 1. No evidence of pulmonary emboli. 2. Dependent segmental atelectasis in the lower lobes bilaterally, left greater than right. No appreciable superimposed consolidation. 3. Mild centrilobular pulmonary emphysema. 4. Moderate-sized hiatal hernia. VTE: negative Assessment and Plan (1) Encephalopathy: Status: Acute (2) UTI (urinary tract infection): Status: Acute (3) Acute and chronic respiratory failure with hypoxia: Status: Acute (4) Acute exacerbation of chronic obstructive airways disease: Status: Acute 80-year-old female with extensive past medical history who [facility] # encephalopathy - most likely secondary to acute UTI - no evidence of pneumonia, no evidence of other infections - afebrile, no leukocytosis - apparently patient had UTI at the [facility] and was being treated with levofloxacin 250 mg - given her positive UA will treat her wrist IV ceftriaxone - will order has CT to rule out any other etiology for her encephalopathy - follow mentation # UTI - positive UA, unable to evaluate symptoms - will treat her with IV ceftriaxone - follow cultures # acute hypoxic respiratory failure - most likely secondary to COPD exacerbation, has low BNP, no evidence of pulmonary congestion on CT angiogram, no evidence of PE - IV Solu-Medrol 40 b.i.d., DuoNeb p.r.n. as well as - titrate oxygen office tolerated # COPD exacerbation - management as above # paranoid schizophrenia - continue home medications # dysphagia - will try to contact [facility] for diet # CHF - patient does not appear to be in exacerbation, low BNP, no CT evidence of pulmonary congestion - continue home Lasix of 20 mg daily DVT prophylaxis: Heparin subQ Quality Stroke Does the patient have a stroke diagnosis?: No VTE Prior VTE?: No VTE Risk Level:: Medical - moderate - high VTE Device Contraindication: Treatment Not Indicated VTE Drug Contraindication: N/A - Med Ordered
--- NOTE | 2020-08-30 06:22 | PC.NURSE ---
mar from snf reports that pt may have p.o. medications crushed and mixed with food. pt has hx of dysphasia.
--- NOTE | 2020-08-30 06:45 | PC.NURSE ---
PT AWOKE TO TOUCH, ABLE TO HOLD A SHORT COVERSATION. PT STATES I DON'T KNOW WHERE I AM.
--- NOTE | 2020-08-30 07:03 | PC.NURSE ---
PT REPORT GIVEN TO RN ON FLOOR. PT READY FOR TRANSPORT.
[2020-08-30 08:07] LABS: Lactic Acid 0.7 mmol/L (0.5-2.0)
--- NOTE | 2020-08-30 08:23 | HE.PHANOTE ---
Pt is on Risperdal Consta 50mg last give 08/24/2020. Next dose is due 09/07/2020 [facility], nurse reports that they will deliever medication if patient is still here. MD karishma Naranjo, PharmD
[2020-08-30] MEDS: Heparin Sodium,Porcine 5,000 UNIT/ML VIAL 5000 UNIT SUBCUT ×2 (08:55→18:22)
[2020-08-30] MEDS: 0.9 % Sodium Chloride Flush 3 ML SYRINGE IVFLUSH ×2 (08:56→20:19)
[2020-08-30] MEDS: cefTRIAXone sodium 1 GM in 0.9 % Sodium Chloride 50 ML IV (09:34)
--- NOTE | 2020-08-30 10:06 | MHC.CM.PN ---
IMM08/30/20 Female 80 DX COPD exacerbation UTI Patient lives @ [facility]. Dtr Marimar HCP. Copy requested from facility. She is WC bound. She is able to transfer with assistance. She is somnolent now. Information has been collected from EMR, SNF documentation as well as Pts Dtr HCP MIRTHA. Medicare rights delivered verbally to HCP. IMM was understood. DP return to [facility] via BLS.
[2020-08-30] MEDS: 0.9 % Sodium Chloride 1,000 ML 75 ML IVCONT (13:49)
[2020-08-30] MEDS: methylPREDNISolone Sod Succ 40 MG/ML VIAL IVPUSH (17:52)
[2020-08-30] MEDS: lamoTRIgine 25 MG TABLET 75 MG PO (20:18)
[2020-08-30] MEDS: risperiDONE 2 MG TABLET PO (20:19)
[2020-08-30] MEDS: Gabapentin 400 MG CAPSULE PO (20:19)
[2020-08-30] MEDS: OLANZapine 10 MG TABLET 20 MG PO (20:19)
[2020-08-30] MEDS: clonazePAM 1 MG TABLET PO (20:19)
[2020-08-31] VITALS (10 sets, daily range): BP systolic 132–154; BP diastolic 60–68; PULSE 61–79; RESP 17–18; TEMP 36–36.7; O2SAT 90–97; BMI 27.3
[2020-08-31] MEDS: methylPREDNISolone Sod Succ 40 MG/ML VIAL IVPUSH (05:43)
[2020-08-31] MEDS: Heparin Sodium,Porcine 5,000 UNIT/ML VIAL 5000 UNIT SUBCUT ×2 (05:43→18:29)
[2020-08-31] MEDS: 0.9 % Sodium Chloride 1,000 ML 75 ML IVCONT (05:43)
[2020-08-31 06:53] LABS: MANUAL DIFF FLAG NO
[2020-08-31 07:02] LABS: Basophils Percent Auto 0.1 % (0-2); Eosinophils Percent Auto 0.4 % (0-4); Hematocrit 34.8 % (37-47); Hemoglobin 11.1 g/dl (12.0-16.0); Imm Gran Abs Auto 0.02 X10*3/uL (0.00-0.03); Imm Gran Pct Auto 0.3 % (0.0-0.4); Lymphocytes Absolute Auto 2.5 X10*3/uL (1.2-4.9); Lymphocytes Percent Auto 36.4 % (20-40); Mean Corpuscular HGB Conc 31.9 g/dl (31.0-35.0); Mean Corpuscular Hemoglobin 32.2 pg (27.0-33.0); Mean Corpuscular Volume 100.9 fL (80-98); Mean Platelet Volume 10.5 fL (9.4-12.3); Monocytes Absolute Auto 0.7 X10*3/uL (0.1-1.2); Monocytes Percent Auto 10.3 % (2-11); Neutrophils Absolute Auto 3.5 X10*3/uL (2.0-8.3); Neutrophils Percent Auto 52.5 % (45-73); Platelet Count 196 X10*3/uL (160-400); Red Blood Count 3.45 X10*6/uL (4.20-5.50); Red Cell Distribution Width 13.2 % (11.0-16.0); White Blood Count 6.7 X10*3/uL (4.8-10.8)
[2020-08-31] MEDS: Albuterol/Iprat 2.5/0.5MG 3 ML AMPUL.NEB INHALE ×4 (07:44→20:17)
[2020-08-31 07:54] LABS: Anion Gap 10 (12-20); Blood Urea Nitrogen 14 mg/dL (9-16); Calcium 8.3 mg/dL (8.4-10.2); Carbon Dioxide 32 mmol/L (22-29); Chloride 105 mmol/L (96-108); Creatinine Clr Calc Pharmacy 62.1; Estimated Glomerular Filt Rate > 60; Glucose Random 81 mg/dL (60-115); Potassium 3.8 mmol/L (3.3-5.1); Sodium 143 mmol/L (135-145)
--- NOTE | 2020-08-31 11:20 | MHC.CM.PN ---
Female 80 dx UTI She was somnolent yesterday. Today she is awake and speaking. Reported Improvement to Pts DTR via phone. CM will follow.
[2020-08-31] MEDS: Aspirin 81 MG TAB.CHEW PO (11:51)
[2020-08-31] MEDS: Gabapentin 400 MG CAPSULE PO (11:51)
[2020-08-31] MEDS: OLANZapine 10 MG TABLET PO (11:51)
[2020-08-31] MEDS: lamoTRIgine 25 MG TABLET 75 MG PO ×2 (12:00→21:34)
[2020-08-31] MEDS: risperiDONE 2 MG TABLET PO ×2 (12:01→21:34)
[2020-08-31] MEDS: polyethylene glycoL 3350 17 GM POWD.PACK PO (12:01)
[2020-08-31] MEDS: cefTRIAXone sodium 1 GM in 0.9 % Sodium Chloride 50 ML IV (12:30)
--- NOTE | 2020-08-31 14:55 | HO.PM.IMPN ---
Subjective Subjective Date of Service: 08/31/20 Interval History: patient awake alert answering questions appropriately denies headache, denies urinary symptoms of urgency frequency no cough, no acute issues noted overnight ROS General no headache, no dizziness, no fever chills. CVS no chest pain, no palpitation. Respiratory no cough, no sob. Gastrointestinal no nausea no vomiting, no abdominal pain Physical Exam Vital Signs: Vital Signs: Last Vital Signs Temp 97.7 F 08/31/20 11:30 Pulse 78 08/31/20 11:32 Resp 18 08/31/20 11:30 BP 154/68 H 08/31/20 11:30 Pulse Ox 90 L 08/31/20 11:30 Body Mass Index 27.3 General resting comfortably ,no acute distress. Neck supple no JVD. CVS regular rate rhythm, Respiratory lungs clear to auscultation, no respiratory distress, no wheeze, no rhonchi. Gastrointestinal abdomen soft, nontender, bowel sounds audible, no guarding , no rigidity. Extremities no edema. Neuro nonfocal , speech clear. Skin no rash Objective Data Current Medications Generic Name Dose Route Start Last Admin Trade Name Freq PRN Reason Stop Dose Admin Acetaminophen 650 mg 08/30/20 05:18 Acetaminophen 325 Mg Tablet PO Q6H PRN Pain, Mild (Pain Scale 1-3) Albuterol Sulfate 2 puff 08/30/20 05:18 Albuterol Sulfate 90 Mcg 8 Gm Inhaler INHALE QID PRN Wheezing Albuterol/Ipratropium 3 ml 08/30/20 08:00 08/31/20 11:29 Albuterol/Iprat 2.5/0.5mg 3 Ml Ampul.Neb INHALE 3 ml RQ4H WHILE AWAKE CHLOE Administration Albuterol/Ipratropium 3 ml 08/30/20 05:18 Albuterol/Iprat 2.5/0.5mg 3 Ml Ampul.Neb INHALE RQ4H PRN Shortness of Breath/Wheezing Aspirin 81 mg 08/30/20 09:00 08/31/20 11:51 Aspirin 81 Mg Tab.Chew PO 81 mg DAILY CHLOE Administration Bisacodyl 10 mg 08/30/20 05:18 Bisacodyl 10 Mg Supp.Rect [place] DAILY PRN Constipation Clonazepam 1 mg 08/30/20 21:00 08/30/20 20:19 Clonazepam 1 Mg Tablet PO 1 mg BEDTIME CHLOE Administration Docusate Sodium 100 mg 08/30/20 05:18 Docusate Sodium 100 Mg Capsule PO DAILY PRN Constipation Gabapentin 400 mg 08/30/20 09:00 08/31/20 11:51 Gabapentin 400 Mg Capsule PO 400 mg BID CHLOE Administration Heparin Sodium (Porcine) 5,000 unit 08/30/20 07:00 08/31/20 05:43 Heparin Sodium,Porcine 5,000 Unit/Ml Vial SUBCUT 5,000 unit Q12H CHLOE Administration Ceftriaxone Sodium 1 gm/ 50 mls @ 100 mls/hr 08/30/20 10:00 08/31/20 13:36 Sodium Chloride IV Infused Q24H CHLOE Infusion Sodium Chloride 1,000 mls @ 75 mls/hr 08/30/20 12:00 08/31/20 05:43 Ns IVCONT 75 mls/hr .[id number] CHLOE Administration Lamotrigine 75 mg 08/30/20 09:00 08/31/20 12:00 Lamotrigine 25 Mg Tablet PO 75 mg BID CHLOE Administration Magnesium Hydroxide 30 ml 08/30/20 05:18 Milk Of Magnesia 30 Ml Oral.Susp PO DAILY PRN Constipation Methylprednisolone Sodium Succinate 40 mg 08/30/20 17:00 08/31/20 05:43 Methylprednisolone Sod Succ 40 Mg/Ml Vial IVPUSH 40 mg Q12H CHLOE Administration Patient Own 1 each 09/07/20 09:00 Medication ( IM Risperdal Consta 50 Q14D CHLOE Mg/2 Ml) Olanzapine 10 mg 08/30/20 09:00 08/31/20 11:51 Olanzapine 10 Mg Tablet PO 10 mg DAILY CHLOE Administration Olanzapine 20 mg 08/30/20 21:00 08/30/20 20:19 Olanzapine 10 Mg Tablet PO 20 mg BEDTIME CHLOE Administration Ondansetron HCl 4 mg 08/30/20 05:18 Ondansetron Hcl 4 Mg/2 Ml Vial IVPUSH Q8H PRN Nausea and Vomiting Phenytoin 300 mg 08/30/20 09:00 08/31/20 12:34 Phenytoin Chewable 50 Mg Tab.Chew PO Not Given DAILY CHLOE Polyethylene Glycol 17 gm 08/30/20 09:00 08/31/20 12:01 Polyethylene Glycol 3350 17 Gm Powd.Pack PO 17 gm DAILY CHLOE Administration Risperidone 2 mg 08/30/20 09:00 08/31/20 12:01 Risperidone 2 Mg Tablet PO 2 mg BID CHLOE Administration Sodium Chloride 3 ml 08/30/20 08:00 08/31/20 11:51 0.9 % Sodium Chloride Flush 3 Ml Syringe IVFLUSH Not Given QSHIFT [facility] Labs CBC & Chem 7: 08/31/20 05:18 08/31/20 05:18 Labs: Laboratory Results - last 24 hr 08/31/20 08/31/20 05:18 05:18 WBC 6.7 RBC 3.45 L Hgb 11.1 L Hct 34.8 L MCV 100.9 H MCH 32.2 MCHC 31.9 RDW 13.2 Plt Count 196 MPV 10.5 Immature Gran % (Auto) 0.3 Neut % (Auto) 52.5 Lymph % (Auto) 36.4 [place] % (Auto) 10.3 Eos % (Auto) 0.4 Baso % (Auto) 0.1 Lymph # (Auto) 2.5 [place] # (Auto) 0.7 Eos # (Auto) 0.0 Baso # (Auto) 0.0 Abs Immat Gran (auto) 0.02 Absolute Neuts (auto) 3.5 Absolute Nucleated RBC 0.000 Nucleated RBC % (auto) 0.0 Sodium 143 Potassium 3.8 Chloride 105 Carbon Dioxide 32 H Anion Gap 10 L BUN 14 Creatinine 0.58 Estim Creat Clear Calc 62.1 Estimated GFR > 60 Random Glucose 81 Calcium 8.3 L Microbiology Microbiology Results: Microbiology 08/30/20 01:59 Blood Culture - Preliminary Blood - Venous 08/30/20 09:33 Urine Culture - Final Urine Catheterized - Garcia Catheter 08/30/20 01:59 Blood Culture - Preliminary Blood - Venous No growth after 24 hours. Quality Stroke Does the patient have a stroke diagnosis?: No VTE Prior VTE?: No VTE Risk Level:: Medical - moderate - high VTE Device Contraindication: Treatment Not Indicated VTE Drug Contraindication: N/A - Med Ordered Assessment and Plan (1) Encephalopathy: Status: Acute (2) Acute UTI: Status: Acute (3) Acute and chronic respiratory failure with hypoxia: Status: Acute Assessment and Plan: 80-year-old female with extensive past medical history who was sent [facility] the [facility] from [facility] for decreased responsiveness # acute encephalopathy patient remains somnolent after admission therefore CT head was obtained that showed no acute abnormality, later in the day patient became awake alert answering questions appropriately, patient remained hemodynamically stable and mentating well this morning, urinalysis is positive however urine culture grew mixed bacterial cheryl CTA chest showed no evidence of PE, no pneumonia patient remains afebrile with normal WBC, normal renal function, electrolytes and liver enzymes. blood cultures 1/2 growing Gram-positive cocci likely contamination, continue IV antibiotic for now blood cultures negative will discontinue antibiotics no acute cause of encephalopathy found, DC IV fluid # UTI positive UA, urine culture less than 50,000 mixed organism, patient asymptomatic, if blood cultures negative DC IV antibiotic, patient recently treated at [facility] with Levaquin for UTI # acute hypoxic respiratory failure question due to somnolence and poor respiratory effort no evidence of acute CHF exacerbation or COPD exacerbation, CT angiogram negative for PE DC IV Solu Medrol wean oxygen and follow clinical course patient not on home oxygen # paranoid schizophrenia - continue home medications, no behavioral issues noted # dysphagia # history of CHF patient does not appear to be in exacerbation, low BNP, no CT evidence of pulmonary congestion, continue home Lasix of 20 mg daily DVT prophylaxis: Heparin subQ
[2020-08-31] MEDS: OLANZapine 10 MG TABLET 20 MG PO (21:34)
[2020-08-31] MEDS: clonazePAM 1 MG TABLET PO (21:34)
[2020-08-31] MEDS: 0.9 % Sodium Chloride Flush 3 ML SYRINGE IVFLUSH (21:34)
[2020-09-01] MEDS: hydrOXYzine HCL 25 MG TABLET PO (00:18)
[2020-09-01 03:15] VITALS: BP 132/59; PULSE 66; RESP 17; TEMP 36.6; O2SAT 92
[2020-09-01 05:44] VITALS: BMI 28.2
[2020-09-01] MEDS: Heparin Sodium,Porcine 5,000 UNIT/ML VIAL 5000 UNIT SUBCUT (06:16)
[2020-09-01 07:07] VITALS: BP 147/65; PULSE 86; RESP 22; TEMP 36.4; O2SAT 96
[2020-09-01] MEDS: OLANZapine 10 MG TABLET PO (07:50)
[2020-09-01] MEDS: Aspirin 81 MG TAB.CHEW PO (07:50)
[2020-09-01] MEDS: risperiDONE 2 MG TABLET PO (07:51)
[2020-09-01] MEDS: Phenytoin Chewable 50 MG TAB.CHEW 300 MG PO (07:51)
[2020-09-01] MEDS: Gabapentin 400 MG CAPSULE PO (07:51)
[2020-09-01] MEDS: lamoTRIgine 25 MG TABLET 75 MG PO (07:51)
[2020-09-01] MEDS: polyethylene glycoL 3350 17 GM POWD.PACK PO (07:52)
[2020-09-01] MEDS: 0.9 % Sodium Chloride Flush 3 ML SYRINGE IVFLUSH (07:52)
[2020-09-01 08:12] VITALS: PULSE 72; O2SAT 96
[2020-09-01] MEDS: Albuterol/Iprat 2.5/0.5MG 3 ML AMPUL.NEB INHALE (08:12)
[2020-09-01] MEDS: cefTRIAXone sodium 1 GM in 0.9 % Sodium Chloride 50 ML IV (10:22)
[2020-09-01 10:58] VITALS: BP 112/59; PULSE 66; RESP 20; TEMP 36.2; O2SAT 96
--- NOTE | 2020-09-01 11:05 | PM.DS ---
DS: Providers Provider Date of Service: 09/01/20 Date of admission: 08/30/20 04:48 Primary care physician: Unknown Physician DS: Diagnosis Discharge Diagnosis (1) Encephalopathy: Status: Acute (2) Acute UTI: Status: Acute (3) Acute and chronic respiratory failure with hypoxia: Status: Acute DS: Medications Discharge Medications Home Medications: Home Medications Medication Instructions Recorded Confirmed Al-Mag w/ SIM 08/30/20 08/30/20 Risperdal Consta 50 mg IM Q14D 08/30/20 08/30/20 acetaminophen 650 mg PA Q6H PRN 08/30/20 08/30/20 acetaminophen [Tylenol] 650 mg PO Q6H PRN 08/30/20 08/30/20 albuterol sulfate 2 inh INHALATION QID PRN 08/30/20 08/30/20 aspirin 81 mg PO DAILY 08/30/20 08/30/20 bisacodyl 10 mg PA DAILY PRN 08/30/20 08/30/20 clonazepam [Klonopin] 1 mg PO BEDTIME 08/30/20 08/30/20 furosemide [Lasix] 20 mg PO DAILY 08/30/20 08/30/20 gabapentin 400 mg PO BID 08/30/20 08/30/20 lamotrigine 75 mg PO BID 08/30/20 08/30/20 magnesium hydroxide [Milk of 30 ml PO DAILY PRN 08/30/20 08/30/20 Magnesia] olanzapine [Zyprexa] 10 mg PO DAILY 08/30/20 08/30/20 olanzapine [Zyprexa] 20 mg PO QPM 08/30/20 08/30/20 phenytoin [Dilantin Infatabs] 300 mg PO DAILY 08/30/20 08/30/20 polyethylene glycol 3350 17 g PO DAILY 08/30/20 08/30/20 risperidone 2 mg PO BID 08/30/20 08/30/20 DS: Summary Hospital Course Hospital Course: history of presenting illness Chief Complaint: unresponsive 78-year-old female with extensive past medical history that includes COPD, dysphagia, HTN, CAD, paranoid schizophrenia, among others who presents to the hospital from [facility]F due to decreased responsiveness for 3-4 hours. Patient herself is very somnolent, very difficult to arouse, apparently when she came into the ED she was more responsive but right now she is not talking. I called her daughter she said she has schizophrenia at baseline but usually converses normally. According to the notes from [facility] patient was treated for CHF after an x-ray was done yesterday showing pulmonary congestion. on her arrival to the ED patient hemodynamically stable with no significant abnormal vitals. Patient did desatted to the 80s while in the ED, she is now on 4 L of Venturi mask. Labs are significant for WBC count of 8.9, hemoglobin of 11.8, VBG that shows pH of 7.42, CO2 of 54, otherwise unremarkable. BNP of 20. UA shows leukocyte Estrace and WBC, chest CT angiogram shows no evidence of pulmonary emboli. Dependent segmental atelectasis in the lower lobes bilaterally, left greater than right, no appreciable superimposed consolidation, mild central lobar pulmonary is emphysema, hiatal hernia hospital course 80-year-old female with extensive past medical history who was [facility] the [facility] from [facility] for decreased responsiveness diagnosed to have acute encephalopathy. # acute encephalopathy patient now seems to be at baseline no acute cause of somnolence or confusion found, urinalysis was positive however urine culture showed no growth, somnolence was likely due to multiple psychiatric medications, workup including CT head, CTA chest showed no acute abnormality, patient remained afebrile with a normal WBC count normal electrolytes and renal function, normal liver enzymes, since patient is back to baseline she is being discharged home with baseline medications, if noted to have recurrent episodes of somnolence her psychiatric medications can be adjusted since she is on multiple neuro depressive medication. # Patient initially thought to have UTI with a positive urinalysis however urine culture grew less than 50,000 mixed organism, patient asymptomatic, blood cultures negative therefore does not require further antibiotic treatment. # acute hypoxic respiratory failure Likely due to somnolence and poor respiratory effort no evidence of acute CHF exacerbation or COPD exacerbation, CT angiogram negative for PE # paranoid schizophrenia continue home medications, no behavioral issues noted. # In regard to history of CHF no acute exacerbation noted,has low BNP, no CT evidence of pulmonary congestion, continue home Lasix of 20 mg daily. Time Spent with Patient Time attestation: Total time spent providing and/or coordinating discharge services: Discharge coordination time: Greater than 30 minutes Quality: Stroke Does the patient have a stroke diagnosis?: No Physical Exam Vital Signs: Vital Signs: Last Vital Signs Temp 97.2 F 07/02/21 10:58 Pulse 66 09/01/20 10:58 Resp 20 09/01/20 10:58 BP 112/59 L 09/01/20 10:58 Pulse Ox 96 09/01/20 10:58 Body Mass Index 28.2 General resting comfortably ,no acute distress. Neck supple no JVD. CVS regular rate rhythm, Respiratory lungs clear to auscultation, no respiratory distress, no wheeze, no rhonchi. Gastrointestinal abdomen soft, nontender, bowel sounds audible, no guarding , no rigidity. Extremities no edema. Neuro nonfocal , speech clear. Skin no rash DS: Data Data Completed and Pending Labs on day of discharge: Preliminary micro results at discharge 08/30/20 01:59 Blood Culture - Preliminary Blood - Venous No growth after 48 hours. Discharge Plan Discharge Patient Disposition: [facility] Discharge Diagnosis: Acute encephalopathy acute hypoxic respiratory failure UTI paranoid schizophrenia Referrals: [facility] [Outside] - 1 Week Physician,Unknown [Primary Care Provider] - 1 Week Discharge Medications: Continued (DME) Al-Mag w/ SIM 30ml liquid RF: 0 lamotrigine 150 mg Tablet 75 mg PO BID RF: 0 acetaminophen [Tylenol] 325 mg Tablet 650 mg PO Q6H PRN (Reason: Pain) RF: 0 acetaminophen 650 mg Suppository 650 mg PA Q6H PRN (Reason: Pain) RF: 0 clonazepam [Klonopin] 1 mg Tablet 1 mg PO BEDTIME RF: 0 olanzapine [Zyprexa] 10 mg Tablet 10 mg PO DAILY RF: 0 phenytoin [Dilantin Infatabs] 50 mg Tablet,Chewable 300 mg PO DAILY RF: 0 risperidone 2 mg Tablet 2 mg PO BID RF: 0 magnesium hydroxide [Milk of Magnesia] 400 mg/5 mL Suspension 30 ml PO DAILY PRN (Reason: Constipation) RF: 0 bisacodyl 10 mg Suppository 10 mg PA DAILY PRN (Reason: Constipation) RF: 0 aspirin 81 mg Tablet,Chewable 81 mg PO DAILY RF: 0 furosemide [Lasix] 20 mg Tablet 20 mg PO DAILY RF: 0 polyethylene glycol 3350 17 gram/dose Powder 17 g PO DAILY RF: 0 albuterol sulfate 90 mcg/actuation Hfa Aerosol Inhaler 2 inh INHALATION QID PRN (Reason: Wheezing) RF: 0 olanzapine [Zyprexa] 20 mg Tablet 20 mg PO QPM RF: 0 Risperdal Consta 50 mg/2 mL Suspension,Extended Rel Recon 50 mg IM Q14D RF: 0 gabapentin 400 mg Tablet 400 mg PO BID RF: 0 Discontinued levofloxacin [Levaquin] 250 mg Tablet 250 mg PO DAILY RF: 0 Discharge Orders: Discharge Order (Routine); Ordered 09/01/20 Ordered By: Ariadna Crockett Diet: advance to usual diet Activity on Discharge: As tolerated Stand Alone Forms: Patient Portal Discharge page Care Plan Goals: somnolence resolved continue all home medications, no behavioral issues noted, oxygenation normalized, no acute infection found Health Concerns: history of CHF, paranoid schizophrenia continue current medication Plan of Treatment: outpatient follow-up with PCP Assessment: as above
== END 2020-09-01 13:13 | disposition skilled nursing facility (03) | DRG 91 ==
LOC: HO.ED 03:18 → HO.EDOVER 05:32 → HO.IMC 06:41
PROVIDERS: Admitting Provider Internal Medicine; Emergency Provider Internal Medicine; Visit Provider Hospitalist
DX: G92 Toxic encephalopathy (principal); J96.01 Acute respiratory failure with hypoxia; F20.0 Paranoid schizophrenia; J44.1 Chronic obstructive pulmonary disease with (acute) exacerbation; R13.10 Dysphagia, unspecified; I11.0 Hypertensive heart disease with heart failure; I50.9 Heart failure, unspecified; I25.10 Atherosclerotic heart disease of native coronary artery without angina pectoris; F03.90 Unspecified dementia, unspecified severity, without behavioral disturbance, psychotic disturbance, mood disturbance, and anxiety; T50.915A Adverse effect of multiple unspecified drugs, medicaments and biological substances, initial encounter; Y92.9 Unspecified place or not applicable; Z20.822 Contact with and (suspected) exposure to COVID-19; Z79.82 Long term (current) use of aspirin; Z79.899 Other long term (current) drug therapy; Z66 Do not resuscitate
CPT/HCPCS: 36415; 70450; 71045; 71275; 80048; 80053; 80185; 81001; 81003; 83605; 83880; 84484; 85025; 87040; 87086; 87147; 87205; 87635; 93005; 94640; 99285; J0696; J1940; J2543; J2920; J2930; Q9967

== ENCOUNTER 2021-04-13 18:41 | Inpatient (IN) | payer MEDICARE, MEDICAID, SELFPAY ==
[2021-04-13 18:49] VITALS: BP 135/55; PULSE 88; RESP 16; TEMP 37; O2SAT 97; BMI 26.9
--- NOTE | 2021-04-13 18:57 | ED.RECABL ---
HPI - Recheck/Abnormal Lab/Rx General Chief Complaint: Recheck/Abnormal Lab/Rx Stated Complaint: abnormal labs Time Seen by Provider: 04/13/21 18:57 Source: patient Mode of arrival: ambulatory Limitations: no limitations History of Present Illness HPI narrative: Patient is 1 years old with history of COPD, dysphagia, hypertension, coronary disease, paranoid schizophrenia [facility] from [facility] for increased fatigue noticed to have h/h of 5.9/21.8 at this time patient denies any complaints no abdominal pain no black stool no bleeding from any plays denies any shortness of breath no chest pain or palpitation Related Data Home Medications Medication Instructions Recorded Confirmed Al-Mag w/ SIM 08/30/20 04/13/21 acetaminophen 325 mg tablet 650 mg PO Q6H PRN 08/30/20 04/13/21 (Tylenol) acetaminophen 650 mg rectal 650 mg NC Q6H PRN 08/30/20 04/13/21 suppository albuterol sulfate 90 mcg/actuation 2 inh INHALATION QID PRN 08/30/20 04/13/21 aerosol inhaler aspirin 81 mg chewable tablet 81 mg PO DAILY 08/30/20 04/13/21 bisacodyl 10 mg rectal suppository 10 mg NC DAILY PRN 08/30/20 04/13/21 clonazepam 1 mg tablet (Klonopin) 1 mg PO BEDTIME 08/30/20 04/13/21 gabapentin 400 mg tablet 400 mg PO BID 08/30/20 04/13/21 lamotrigine 150 mg tablet 75 mg PO BID 08/30/20 04/13/21 magnesium hydroxide 400 mg/5 mL 30 ml PO DAILY PRN 08/30/20 04/13/21 oral suspension (Milk of Magnesia) olanzapine 10 mg tablet (Zyprexa) 10 mg PO DAILY 08/30/20 04/13/21 olanzapine 20 mg tablet (Zyprexa) 20 mg PO QPM 08/30/20 04/13/21 phenytoin 50 mg chewable tablet 300 mg PO DAILY 08/30/20 04/13/21 (Dilantin Infatabs) polyethylene glycol 3350 17 17 g PO DAILY 08/30/20 04/13/21 gram/dose oral powder risperidone 2 mg tablet 2 mg PO BID 08/30/20 04/13/21 risperidone microspheres 50 mg/2 50 mg IM Q14D 08/30/20 04/13/21 mL intramuscular susp,ext release (Risperdal Consta) Allergies Allergy/AdvReac Type Severity Reaction Status Date / Time divalproex sodium Allergy Unknown UNKNOWN Verified 08/30/20 06:[address] [[address] [facility]] Review of Systems Review of Systems: Yes all other systems are reviewed and are negative [facility] Past Medical History Medical History Atherosclerotic heart disease of [place] coronary artery with unspecified angina pectoris Bilateral cataracts Candidiasis of skin and nail Constipation COPD (chronic obstructive pulmonary disease) COVID-19 vaccine administered Degenerative disease of nervous system Diaphragmatic hernia DNI (do not intubate) DNR (do not resuscitate) Dysphagia Essential tremor Family history of diseases of the blood and blood-forming organs and certain disorders involving the immune mechanism GERD (gastroesophageal reflux disease) HTN (hypertension) Hyperlipidemia Incontinence Iron deficiency anemia Overactive bladder Paranoid schizophrenia Postmenopausal atrophic vaginitis Urinary tract infection Urine retention Vitamin B12 deficiency (dietary) anemia Vitamin D deficiency Social History Social History Household Members: None Housing: Care Home Unable to assess alcohol history related to: Unknown Advance Directives: Yes Advance Directives on File: Yes Advance Directives Date on File: 09/05/20 service: No Current occupational status: retired Physical Exam Vital Signs: Vital Signs: Last Vital Signs Temp 98.2 F 04/13/21 23:33 Pulse 69 04/13/21 23:33 Resp 16 04/13/21 23:33 BP 124/53 L 04/13/21 23:33 Pulse Ox 98 04/13/21 22:09 Oxygen Flow Rate 2 04/13/21 18:49 BMI result Body Mass Index 26.9 Appearance: Alert. Oriented X3. No acute distress. Eyes: pllor++ ENT: Pharynx normal. Oral Mucosa moist Neck: Normal inspection. Neck supple. CVS: Normal heart rate and rhythm. Pulses normal. Respiratory: No respiratory distress. Equal air entry bilateral, no wheezing/rales/rhonchi Abdomen: Soft and nontender. Bowel sounds are present, no mass palpable, no CVA tenderness Rectal: Brown stool guaiac positive Skin: Skin warm and dry. Normal skin color. Normal skin turgor. Extremities: No lower extremity edema. No calf tenderness Neuro: Oriented X 3. No motor deficit. MDM - Recheck/Abnormal Lab/Rx MDM Narrative Medical decision making narrative: Patient with Hemoccult-positive stools no rosa melena no abdominal pain noticed to have significant anemia with hemoglobin of 5.9 hematocrit 20.8 it was 11.1/34.8 on 09/20. Will admit patient for significant anemia with for blood transfusion and GI workup including endoscopy and colonoscopy will start on her on Protonix Lab Data Attestation: I reviewed the patient's lab results. Result diagrams: 04/13/21 21:00 04/13/21 21:00 Labs: Lab Results 04/13/21 04/13/21 04/13/21 Range/Units 19:21 21:00 21:00 WBC 6.9 (4.8-10.8) X10*3/uL RBC 3.07 L (4.20-5.50) X10*6/uL Hgb 5.9 L* (12.0-16.0) g/dl Hct 20.8 L* (37.0-47.0) % MCV 67.8 L (80.0-98.0) fL MCH 19.2 L (27.0-33.0) pg MCHC 28.4 L (31.0-35.0) g/dl RDW 19.9 H (11.0-16.0) % Plt Count 289 (160-400) X10*3/uL MPV 8.7 L (9.4-12.3) fL Immature Gran % (Auto) 0.4 (0.0-0.4) % Neut % (Auto) 51.1 (45-73) % Lymph % (Auto) 34.2 (20-40) % [place] % (Auto) 12.3 H (2-11) % Eos % (Auto) 1.9 (0-4) % Baso % (Auto) 0.1 (0-2) % Lymph # (Auto) 2.4 (1.2-4.9) X10*3/uL [place] # (Auto) 0.9 (0.1-1.2) X10*3/uL Eos # (Auto) 0.1 (0.0-0.4) X10*3/uL Baso # (Auto) 0.0 (0.0-0.2) X10*3/uL Abs Immat Gran (auto) 0.03 (0.00-0.03) X10*3/uL Absolute Neuts (auto) 3.5 (2.0-8.3) x10*3/uL Absolute Nucleated RBC 0.000 (0.0-0.012) X10*3/uL Nucleated RBC % (auto) 0.0 (0.0-0.2) /100WBC PT (9.9-13.0) SEC INR (0.9-1.1) APTT (24.1-38.0) SEC Sodium 141 (135-145) mmol/L Potassium 4.0 (3.3-5.1) mmol/L Chloride 106 (96-108) mmol/L Carbon Dioxide 30 H (22-29) mmol/L Anion Gap 9 L (12-20) BUN 15 (9-16) mg/dL Creatinine 0.65 (0.5-1.4) mg/dL Estim Creat Clear Calc 56.4 Estimated GFR > 60 Random Glucose 103 (60-115) mg/dL Calcium 8.4 (8.4-10.2) mg/dL Iron 20 L (30-160) mcg/dL TIBC 322 (228-428) mcg/dL % Saturation 6 L (15-50) % Unsat Iron Binding 302 ug/dL Total Bilirubin < 0.2 (0.0-1.0) mg/dL Direct Bilirubin < 0.2 (0.0-0.5) mg/dL AST 10 D (5-31) U/L ALT 6 (0-31) U/L Alkaline Phosphatase 162 H (39-117) U/L Total Protein 6.1 L (6.5-8.0) g/dL Albumin 3.3 L (3.5-5.0) g/dL Stool Occult Blood POSITIVE (NEGATIVE) Blood Type Antibody Screen Crossmatch 04/13/21 04/13/21 Range/Units 21:00 21:00 WBC (4.8-10.8) X10*3/uL RBC (4.20-5.50) X10*6/uL Hgb (12.0-16.0) g/dl Hct (37.0-47.0) % MCV (80.0-98.0) fL MCH (27.0-33.0) pg MCHC (31.0-35.0) g/dl RDW (11.0-16.0) % Plt Count (160-400) X10*3/uL MPV (9.4-12.3) fL Immature Gran % (Auto) (0.0-0.4) % Neut % (Auto) (45-73) % Lymph % (Auto) (20-40) % [place] % (Auto) (2-11) % Eos % (Auto) (0-4) % Baso % (Auto) (0-2) % Lymph # (Auto) (1.2-4.9) X10*3/uL [place] # (Auto) (0.1-1.2) X10*3/uL Eos # (Auto) (0.0-0.4) X10*3/uL Baso # (Auto) (0.0-0.2) X10*3/uL Abs Immat Gran (auto) (0.00-0.03) X10*3/uL Absolute Neuts (auto) (2.0-8.3) x10*3/uL Absolute Nucleated RBC (0.0-0.012) X10*3/uL Nucleated RBC % (auto) (0.0-0.2) /100WBC PT 11.8 (9.9-13.0) SEC INR 1.0 (0.9-1.1) APTT 26.0 (24.1-38.0) SEC Sodium (135-145) mmol/L Potassium (3.3-5.1) mmol/L Chloride (96-108) mmol/L Carbon Dioxide (22-29) mmol/L Anion Gap (12-20) BUN (9-16) mg/dL Creatinine (0.5-1.4) mg/dL Estim Creat Clear Calc Estimated GFR Random Glucose (60-115) mg/dL Calcium (8.4-10.2) mg/dL Iron (30-160) mcg/dL TIBC (228-428) mcg/dL % Saturation (15-50) % Unsat Iron Binding ug/dL Total Bilirubin (0.0-1.0) mg/dL Direct Bilirubin (0.0-0.5) mg/dL AST (5-31) U/L ALT (0-31) U/L Alkaline Phosphatase (39-117) U/L Total Protein (6.5-8.0) g/dL Albumin (3.5-5.0) g/dL Stool Occult Blood (NEGATIVE) Blood Type O Positive Antibody Screen NEGATIVE Crossmatch See Detail Discharge Plan Discharge Clinical Impression: Severe anemia, GI (gastrointestinal bleed) Patient Disposition: Admitted As Inpatient
[2021-04-13 19:28] LABS: OBS Int Ctl Valid YES; OBS1 POSITIVE (NEGATIVE)
[2021-04-13 21:06] LABS: MANUAL DIFF FLAG NO
[2021-04-13 21:08] LABS: Basophils Percent Auto 0.1 % (0-2); Eosinophils Absolute Auto 0.1 X10*3/uL (0.0-0.4); Eosinophils Percent Auto 1.9 % (0-4); Imm Gran Abs Auto 0.03 X10*3/uL (0.00-0.03); Imm Gran Pct Auto 0.4 % (0.0-0.4); Lymphocytes Absolute Auto 2.4 X10*3/uL (1.2-4.9); Lymphocytes Percent Auto 34.2 % (20-40); Mean Corpuscular HGB Conc 28.4 g/dl (31.0-35.0); Mean Corpuscular Hemoglobin 19.2 pg (27.0-33.0); Mean Corpuscular Volume 67.8 fL (80.0-98.0); Mean Platelet Volume 8.7 fL (9.4-12.3); Monocytes Absolute Auto 0.9 X10*3/uL (0.1-1.2); Monocytes Percent Auto 12.3 % (2-11); Neutrophils Absolute Auto 3.5 x10*3/uL (2.0-8.3); Neutrophils Percent Auto 51.1 % (45-73); Platelet Count 289 X10*3/uL (160-400); Red Blood Count 3.07 X10*6/uL (4.20-5.50); Red Cell Distribution Width 19.9 % (11.0-16.0); White Blood Count 6.9 X10*3/uL (4.8-10.8)
[2021-04-13 21:14] LABS: Hematocrit 20.8 % (37.0-47.0); Hemoglobin 5.9 g/dl (12.0-16.0)
[2021-04-13 21:17] LABS: Prothrombin Time 11.8 SEC (9.9-13.0)
[2021-04-13 21:24] LABS: Anion Gap 9 (12-20); Blood Urea Nitrogen 15 mg/dL (9-16); Calcium 8.4 mg/dL (8.4-10.2); Carbon Dioxide 30 mmol/L (22-29); Chloride 106 mmol/L (96-108); Creatinine Clr Calc Pharmacy 56.4; Estimated Glomerular Filt Rate > 60; Glucose Random 103 mg/dL (60-115); Sodium 141 mmol/L (135-145)
[2021-04-13 22:09] VITALS: BP 121/53; PULSE 76; RESP 18; TEMP 36.8; O2SAT 98
[2021-04-13 22:25] LABS: Alanine Aminotransferase 6 U/L (0-31); Albumin Level 3.3 g/dL (3.5-5.0); Alkaline Phosphatase 162 U/L (39-117); Aspartate Amino Transferase 10 U/L (5-31); Bilirubin Direct < 0.2 mg/dL (0.0-0.5); Bilirubin Total < 0.2 mg/dL (0.0-1.0); Iron 20 mcg/dL (30-160); Percent Iron Saturation 6 % (15-50); Total Iron Binding Capacity 322 mcg/dL (228-428); Total Protein 6.1 g/dL (6.5-8.0); Unsaturated Iron Binding 302 ug/dL
[2021-04-13 22:28] VITALS: BP 115/41; PULSE 75; RESP 16; TEMP 36.8
[2021-04-13] MEDS: Pantoprazole Sodium 40 MG/10 ML VIAL IVPUSH (22:28)
--- NOTE | 2021-04-13 22:30 | PC.NURSE ---
blood consent signed by pt. at bedside. pt medicated as per emar. IV est. to right FA, 1st unit of PRBC infusing w/o difficulty. pt warned of s/s of reaction to transfusion.
[2021-04-13 22:45] VITALS: BP 126/58; PULSE 74; RESP 165; TEMP 36.8
--- NOTE | 2021-04-13 23:30 | P.HPHOSP_ITS ---
History of Present Illness Date of Service: 04/13/21 Chief Complaint: abnormal labs this is an 81 yo F with pmhx of hypertension, hyperlipidemia, GERD, presents to the hospital after labs showed hemoglobin of 5.9. Patient is difficult to understand that she does not have her dentures but reports that she was sent to the hospital from her skilled nursing due to abnormal labs. She denies any black stool, no melena, no hematochezia. No hemoptysis or hematemesis. Denies any palpitations and no chest pain. Patient does report shortness of breath and dizziness as well as fatigue. She otherwise denies any abdominal pain nausea or vomiting, no diarrhea constipation, no urinary symptoms and no lower extremity edema. On arrival to the ED patient hemodynamically stable with no significant abnormal vitals labs showed hgb of 5.9 and hct of 20.8 , previously 11.1 and 34.8 from august, Iron of 20, ferritin of 12, occult stool positive pt transfused two units of pRBC Review of Systems Review of Systems: Yes all other systems are reviewed and are negative [facility] Medical History Atherosclerotic heart disease of [place] coronary artery with unspecified angina pectoris Bilateral cataracts Candidiasis of skin and nail Constipation COPD (chronic obstructive pulmonary disease) COVID-19 vaccine administered Degenerative disease of nervous system Diaphragmatic hernia DNI (do not intubate) DNR (do not resuscitate) Dysphagia Essential tremor Family history of diseases of the blood and blood-forming organs and certain disorders involving the immune mechanism GERD (gastroesophageal reflux disease) HTN (hypertension) Hyperlipidemia Incontinence Iron deficiency anemia Overactive bladder Paranoid schizophrenia Postmenopausal atrophic vaginitis Urinary tract infection Urine retention Vitamin B12 deficiency (dietary) anemia Vitamin D deficiency Family History (Updated 04/14/21 @ 06:55 by Chris Moreno MD) Other No family history of coronary artery disease Surgical History (Updated 04/14/21 @ 06:56 by Chris Moreno MD) No pertinent past surgical history Social History Household Members: None Housing: Shelter Unable to assess alcohol history related to: Unknown Advance Directives: Yes Advance Directives on File: Yes Advance Directives Date on File: 09/05/20 service: No Current occupational status: retired Meds Allergies Allergy/AdvReac Type Severity Reaction Status Date / Time divalproex sodium Allergy Unknown UNKNOWN Verified 08/30/20 06:22 [From [facility]] Home Medications Medication Instructions Recorded Confirmed Last Taken Type Al-Mag w/ SIM 08/30/20 04/13/21 Unknown History acetaminophen 325 mg tablet 650 mg PO Q6H PRN 08/30/20 04/13/21 Unknown History (Tylenol) acetaminophen 650 mg rectal 650 mg AR Q6H PRN 08/30/20 04/13/21 Unknown History suppository albuterol sulfate 90 mcg/actuation 2 inh INHALATION QID PRN 08/30/20 04/13/21 Unknown History aerosol inhaler aspirin 81 mg chewable tablet 81 mg PO DAILY 08/30/20 04/13/21 08/29/20 History bisacodyl 10 mg rectal suppository 10 mg AR DAILY PRN 08/30/20 04/13/21 Unknown History clonazepam 1 mg tablet (Klonopin) 1 mg PO BEDTIME 08/30/20 04/13/21 08/29/20 History gabapentin 400 mg tablet 400 mg PO BID 08/30/20 04/13/21 08/29/20 History lamotrigine 150 mg tablet 75 mg PO BID 08/30/20 04/13/21 08/29/20 History magnesium hydroxide 400 mg/5 mL 30 ml PO DAILY PRN 08/30/20 04/13/21 Unknown History oral suspension (Milk of Magnesia) olanzapine 10 mg tablet (Zyprexa) 10 mg PO DAILY 08/30/20 04/13/21 08/29/20 History olanzapine 20 mg tablet (Zyprexa) 20 mg PO QPM 08/30/20 04/13/21 08/29/20 History phenytoin 50 mg chewable tablet 300 mg PO DAILY 08/30/20 04/13/21 08/29/20 History (Dilantin Infatabs) polyethylene glycol 3350 17 17 g PO DAILY 08/30/20 04/13/21 08/29/20 History gram/dose oral powder risperidone 2 mg tablet 2 mg PO BID 08/30/20 04/13/21 08/29/20 History risperidone microspheres 50 mg/2 50 mg IM Q14D 08/30/20 04/13/21 08/24/20 History mL intramuscular susp,ext release (Risperdal Consta) Physical Exam Vital Signs and Narrative: Vital Signs: Last Vital Signs Temp 98.2 F 04/13/21 22:45 Pulse 74 04/13/21 22:45 Resp 165 H 04/13/21 22:45 BP 126/58 L 04/13/21 22:45 Pulse Ox 98 04/13/21 22:09 Oxygen Flow Rate 2 04/13/21 18:49 BMI result Body Mass Index 26.9 Const: General: cooperative and no acute distress Orientati on/consciousness: patient oriented x3 Eyes: Pupils: Equal, round and reactive pupils present Resp: Effort & Inspection: normal respiratory effort Auscultation: clear to auscultation bilaterally Cardio: Rate: regular rate Rhythm: regular rhythm GI: Palpation (GI): Soft to palpation Auscultation: normal bowel sounds Skin: General skin exam: no rashes or lesions noted Neuro: General: patient oriented x3 Cranial nerves: Yes Equal, round and reactive pupils present Cognition (Neuro): normal cognition Extrem: General: Yes normal to inspection and Yes no pedal edema Results Labs CBC and Chem 7: 04/13/21 21:00 04/13/21 21:00 Labs: Laboratory Results - last 24 hr 04/13/21 04/13/21 04/13/21 19:21 21:00 21:00 MCV 67.8 L MCH 19.2 L MCHC 28.4 L RDW 19.9 H Plt Count 289 MPV 8.7 L Immature Gran % (Auto) 0.4 Neut % (Auto) 51.1 Lymph % (Auto) 34.2 [place] % (Auto) 12.3 H Eos % (Auto) 1.9 Baso % (Auto) 0.1 Lymph # (Auto) 2.4 [place] # (Auto) 0.9 Eos # (Auto) 0.1 Baso # (Auto) 0.0 Abs Immat Gran (auto) 0.03 Absolute Neuts (auto) 3.5 Absolute Nucleated RBC 0.000 Nucleated RBC % (auto) 0.0 PT INR APTT Anion Gap 9 L Estim Creat Clear Calc 56.4 Estimated GFR > 60 Random Glucose 103 Calcium 8.4 Iron 20 L TIBC 322 % Saturation 6 L Unsat Iron Binding 302 Total Bilirubin < 0.2 Direct Bilirubin < 0.2 AST 10 D ALT 6 Alkaline Phosphatase 162 H Total Protein 6.1 L Albumin 3.3 L Stool Occult Blood POSITIVE Blood Type Antibody Screen Crossmatch 04/13/21 04/13/21 21:00 21:00 MCV MCH MCHC RDW Plt Count MPV Immature Gran % (Auto) Neut % (Auto) Lymph % (Auto) [place] % (Auto) Eos % (Auto) Baso % (Auto) Lymph # (Auto) [place] # (Auto) Eos # (Auto) Baso # (Auto) Abs Immat Gran (auto) Absolute Neuts (auto) Absolute Nucleated RBC Nucleated RBC % (auto) PT 11.8 INR 1.0 APTT 26.0 Anion Gap Estim Creat Clear Calc Estimated GFR Random Glucose Calcium Iron TIBC % Saturation Unsat Iron Binding Total Bilirubin Direct Bilirubin AST ALT Alkaline Phosphatase Total Protein Albumin Stool Occult Blood Blood Type O Positive Antibody Screen NEGATIVE Crossmatch See Detail Assessment and Plan (1) Severe anemia: Status: Acute (2) GI (gastrointestinal bleed): Status: Acute Plan 81-year-old female who presents to the hospital from skilled nursing with abnormal labs found to have microcytic anemia as well as occult stool positive # acute microcytic anemia - likely secondary to GI bleed as has positive occult stool - hemodynamically stable - hemoglobin dropped from 11 in August to 5.9 today - being transfuse 2 units of PRBC - will follow hemoglobin - GI consulted # GI bleed anemia - will hold aspirin - does not appear to be on NSAIDs - hemodynamically stable - consult GI - follow CBC # will continue her other home medications DVT prophylaxis: SCDs Quality Stroke Does the patient have a stroke diagnosis?: No VTE Prior VTE?: No VTE Risk Level:: Medical - moderate - high VTE Device Contraindication: N/A - Device Ordered VTE Drug Contraindication: Treatment Not Indicated
[2021-04-13 23:33] VITALS: BP 124/53; PULSE 69; RESP 16; TEMP 36.8
--- NOTE | 2021-04-13 23:34 | PC.NURSE ---
1st unit prbc infused w/o difficulty.
[2021-04-14] VITALS (10 sets, daily range): BP systolic 110–135; BP diastolic 36–58; PULSE 60–78; RESP 16–18; TEMP 36.3–36.8; O2SAT 96–98
--- NOTE | 2021-04-14 03:06 | PC.NURSE ---
2nd unit transfused w/o difficulty. site intact.
[2021-04-14 03:12] LABS: Ferritin 12 ng/mL (10-250)
--- NOTE | 2021-04-14 06:31 | PC.NURSE ---
PT CLEANED UP AND IN NAD. PT ALERT, RESPIRATIONS EASY, N/L. SKIN W/D. WILL CONTINUE TO MONITOR PT.
[2021-04-14 06:54] LABS: MANUAL DIFF FLAG NO
[2021-04-14 06:55] LABS: Basophils Percent Auto 0.1 % (0-2); Eosinophils Absolute Auto 0.1 X10*3/uL (0.0-0.4); Eosinophils Percent Auto 1.6 % (0-4); Hematocrit 31.4 % (37.0-47.0); Hemoglobin 9.4 g/dl (12.0-16.0); Imm Gran Abs Auto 0.03 X10*3/uL (0.00-0.03); Imm Gran Pct Auto 0.4 % (0.0-0.4); Lymphocytes Absolute Auto 1.7 X10*3/uL (1.2-4.9); Lymphocytes Percent Auto 22.3 % (20-40); Mean Corpuscular HGB Conc 29.9 g/dl (31.0-35.0); Mean Corpuscular Volume 73.5 fL (80.0-98.0); Mean Platelet Volume 8.8 fL (9.4-12.3); Monocytes Absolute Auto 0.8 X10*3/uL (0.1-1.2); Monocytes Percent Auto 10.3 % (2-11); Neutrophils Absolute Auto 4.8 x10*3/uL (2.0-8.3); Neutrophils Percent Auto 65.3 % (45-73); Platelet Count 272 X10*3/uL (160-400); Red Blood Count 4.27 X10*6/uL (4.20-5.50); Red Cell Distribution Width 22.2 % (11.0-16.0); White Blood Count 7.4 X10*3/uL (4.8-10.8)
[2021-04-14 07:14] LABS: Anion Gap 8 (12-20); Blood Urea Nitrogen 12 mg/dL (9-16); Carbon Dioxide 30 mmol/L (22-29); Chloride 108 mmol/L (96-108); Creatinine Clr Calc Pharmacy 63.2; Estimated Glomerular Filt Rate > 60; Glucose Random 90 mg/dL (60-115); Potassium 3.9 mmol/L (3.3-5.1); Sodium 142 mmol/L (135-145)
--- NOTE | 2021-04-14 07:59 | P.CNGI_ITS ---
History of Present Illness Data of Consult Service Date: 04/14/21 Requesting physician: Chris Moreno Primary Care Provider: Unknown Physician HPI Reason for consult: anemia 81 yo F with pmhx of hypertension, hyperlipidemia, GERD, CAD, and paranoid schizophrenia who I am seeing for assessment of anemia Patient resides in [facility] and was sent after routine labs with HGB 5.9 g/dl, had been previously 11.1 and 34.8 from august, ferritin also low at 12. She denies any black stool, no melena, no hematochezia.? No hemoptysis or hematemesis.? Denies any palpitations and no chest pain.? Patient does report shortness of breath and dizziness as well as fatigue. denies abdominal pain, nausea or vomiting, no diarrhea constipation, no urinary symptoms and no lower extremity edema. pt transfused two units of pRBC with good increment to around 9 g/dl Review of Systems Review of Systems: Constitutional : No Weight loss, No Fever, No Chills ENT/Mouth : No sore throat, No Rhinorrhea Eyes: No Swelling, No Redness Cardiovascular : No Chest Pain,+ SOB, No Edema Respiratory : No Cough, No Sputum, No Wheezing Gastrointestinal : see HPI Genitourinary : NO Dysuria, No Urinary Frequency, No Hematuria, No Urgency Musculoskeletal : No joint pain, No Myalgias, No Joint Swelling Skin : No Skin Lesions, No rash Neuro : No Weakness, No Numbness, No Dizziness, No Headache Psych : No Anxiety/Panic, No Depression, schizophrenia Heme/Lymph: No Bruising, No Lymphadenopathy Endocrine : No Polyuria, No Polydipsia All other systems reviewed and are negative. Yes all other systems are reviewed and are negative [facility] Past Medical History Medical History Atherosclerotic heart disease of [place] coronary artery with unspecified angina pectoris Bilateral cataracts Candidiasis of skin and nail Constipation COPD (chronic obstructive pulmonary disease) COVID-19 vaccine administered Degenerative disease of nervous system Diaphragmatic hernia DNI (do not intubate) DNR (do not resuscitate) Dysphagia Essential tremor Family history of diseases of the blood and blood-forming organs and certain disorders involving the immune mechanism GERD (gastroesophageal reflux disease) HTN (hypertension) Hyperlipidemia Incontinence Iron deficiency anemia Overactive bladder Paranoid schizophrenia Postmenopausal atrophic vaginitis Urinary tract infection Urine retention Vitamin B12 deficiency (dietary) anemia Vitamin D deficiency Family History Family History (Updated 04/14/21 @ 06:55 by Chris Moreno MD) Other No family history of coronary artery disease Surgical History Surgical History (Updated 04/14/21 @ 06:56 by Chris Moreno MD) No pertinent past surgical history Social History Social History Household Members: None Housing: [facility] Unable to assess alcohol history related to: Unknown Advance Directives: Yes Advance Directives on File: Yes Advance Directives Date on File: 09/05/20 service: No Current occupational status: retired Meds Allergies Allergy/AdvReac Type Severity Reaction Status Date / Time divalproex sodium Allergy Unknown UNKNOWN Verified 08/30/20 06:22 [From [facility]] Active Medications: Current Medications Acetaminophen (Acetaminophen 325 Mg Tablet) 650 mg PO Q6H PRN PRN Reason: Pain, Mild (Pain Scale 1-3) Albuterol Sulfate (Albuterol Sulfate 90 Mcg 8 Gm Inhaler) 2 puff INHALE QID PRN PRN Reason: Wheezing Aspirin (Aspirin 81 Mg Tab.Chew) 81 mg PO DAILY [facility] Bisacodyl (Bisacodyl 10 Mg Supp.Rect) 10 mg [place] DAILY PRN PRN Reason: Constipation Clonazepam (Clonazepam 1 Mg Tablet) 1 mg PO BEDTIME [facility] Docusate Sodium (Docusate Sodium 100 Mg Capsule) 100 mg PO DAILY PRN PRN Reason: Constipation Gabapentin (Gabapentin 400 Mg Capsule) 400 mg PO BID [facility] Lamotrigine (Lamotrigine 25 Mg Tablet) 75 mg PO BID [facility] Magnesium Hydroxide (Milk Of Magnesia 30 Ml Oral.Susp) 30 ml PO DAILY PRN PRN Reason: Constipation Non-Formulary Medication (Risperidone Microspheres [Risperdal Consta]) 50 mg IM Q14D [facility] Olanzapine (Olanzapine 10 Mg Tablet) 10 mg PO DAILY [facility] Olanzapine (Olanzapine 10 Mg Tablet) 20 mg PO BEDTIME [facility] Ondansetron HCl (Ondansetron Hcl 4 Mg/2 Ml Vial) 4 mg IVPUSH Q8H PRN PRN Reason: Nausea and Vomiting Phenytoin (Phenytoin Chewable 50 Mg Tab.Chew) 300 mg PO DAILY [facility] Polyethylene Glycol (Polyethylene Glycol 3350 17 Gm Powd.Pack) 17 gm PO DAILY [facility] Risperidone (Risperidone 2 Mg Tablet) 2 mg PO BID [facility] Sodium Chloride (0.9 % Sodium Chloride Flush 3 Ml Syringe) 3 ml IVFLUSH QSHIFT [facility] Last Admin: 04/14/21 06:31 Dose: Not Given Documented by: Home Medications Medication Instructions Recorded Confirmed Last Taken Type Al-Mag w/ SIM 08/30/20 04/13/21 Unknown History acetaminophen 325 mg tablet 650 mg PO Q6H PRN 08/30/20 04/13/21 Unknown History (Tylenol) acetaminophen 650 mg rectal 650 mg TX Q6H PRN 08/30/20 04/13/21 Unknown History suppository albuterol sulfate 90 mcg/actuation 2 inh INHALATION QID PRN 08/30/20 04/13/21 Unknown History aerosol inhaler aspirin 81 mg chewable tablet 81 mg PO DAILY 08/30/20 04/13/21 08/29/20 History bisacodyl 10 mg rectal suppository 10 mg TX DAILY PRN 08/30/20 04/13/21 Unknown History clonazepam 1 mg tablet (Klonopin) 1 mg PO BEDTIME 08/30/20 04/13/21 08/29/20 [place] gabapentin 400 mg tablet 400 mg PO BID 08/30/20 04/13/21 08/29/20 History lamotrigine 150 mg tablet 75 mg PO BID 08/30/20 04/13/21 08/29/20 History magnesium hydroxide 400 mg/5 mL 30 ml PO DAILY PRN 08/30/20 04/13/21 Unknown History oral suspension (Milk of Magnesia) olanzapine 10 mg tablet (Zyprexa) 10 mg PO DAILY 08/30/20 04/13/21 08/29/20 History olanzapine 20 mg tablet (Zyprexa) 20 mg PO QPM 08/30/20 04/13/21 08/29/20 History phenytoin 50 mg chewable tablet 300 mg PO DAILY 08/30/20 04/13/21 08/29/20 History (Dilantin Infatabs) polyethylene glycol 3350 17 17 g PO DAILY 08/30/20 04/13/21 08/29/20 History gram/dose oral powder risperidone 2 mg tablet 2 mg PO BID 08/30/20 04/13/21 08/29/20 History risperidone microspheres 50 mg/2 50 mg IM Q14D 08/30/20 04/13/21 08/24/20 History mL intramuscular susp,ext release (Risperdal Consta) Physical Exam Vital Signs: Vital Signs: Last Vital Signs Temp 98.1 F 04/14/21 04:00 Pulse 62 04/14/21 06:00 Resp 16 04/14/21 06:00 BP 110/36 L 04/14/21 06:00 Pulse Ox 97 04/14/21 06:00 Oxygen Flow Rate 2 04/13/21 18:49 BMI result Body Mass Index 26.9 Const: General: cooperative and no acute distress Orientation/consciousness: patient oriented x3 Eyes: Pupils: Equal, round and reactive pupils present Resp: Effort & Inspection: normal respiratory effort Auscultation: clear to auscultation bilaterally Cardio: Rate: regular rate Rhythm: regular rhythm GI: Palpation (GI): Soft to palpation Auscultation: normal bowel sounds Skin: General skin exam: no rashes or lesions noted Neuro: General: patient oriented x3 Cranial nerves: Yes Equal, round and reactive pupils present Cognition (Neuro): normal cognition Extrem: General: Yes normal to inspection and Yes no pedal edema Psych: Thought process: Circumstantial thought process present Insight: Fair insight present (Psych) Results Labs CBC & Chem 7: 04/14/21 06:42 04/14/21 06:42 Labs: Short CBC 04/13/21 Range/Units 21:00 WBC 6.9 (4.8-10.8) X10*3/uL Hgb 5.9 L* (12.0-16.0) g/dl Hct 20.8 L* (37.0-47.0) % Plt Count 289 (160-400) X10*3/uL [facility] 04/13/21 04/14/21 21:00 06:42 Sodium 141 142 Potassium 4.0 3.9 Chloride 106 108 Carbon Dioxide 30 H 30 H BUN 15 12 Creatinine 0.65 0.58 Calcium 8.4 8.0 L Liver Function 04/13/21 Range/Units 21:00 Total Bilirubin < 0.2 (0.0-1.0) mg/dL Direct Bilirubin < 0.2 (0.0-0.5) mg/dL AST 10 D (5-31) U/L ALT 6 (0-31) U/L Alkaline Phosphatase 162 H (39-117) U/L Albumin 3.3 L (3.5-5.0) g/dL Assessment and Plan (1) Severe anemia: Status: Acute Plan 1/ Iron def anemia probably slow loss, maybe GI tract ddx; neoplasia, advanced polyp, malabsorption, loss PLAN: 1/ clears tomorrow and prep for EGD and colonoscopy Friday Procedures Date of Service Date of Service: 04/14/21
[2021-04-14] MEDS: lamoTRIgine 25 MG TABLET 75 MG PO ×2 (08:48→20:30)
[2021-04-14] MEDS: risperiDONE 2 MG TABLET PO ×2 (08:49→20:30)
[2021-04-14] MEDS: Gabapentin 400 MG CAPSULE PO ×2 (08:49→20:30)
[2021-04-14] MEDS: OLANZapine 10 MG TABLET PO (08:49)
[2021-04-14] MEDS: polyethylene glycoL 3350 17 GM POWD.PACK PO (08:50)
--- NOTE | 2021-04-14 09:06 | PC.NURSE ---
Pt alert/oriented to self, placed and year. Denies pain or discomfort. Cleaned for urine incontinence x 2, purewick applied. No active bleeding noted. VSS. Ate breakfast and accepted AM meds without incident. Skin pale, warm to touch. Breathing even/unlabored. ASA held. Hospitalist noted indicated ASA hold
[2021-04-14] MEDS: Phenytoin Chewable 50 MG TAB.CHEW 300 MG PO (09:15)
--- NOTE | 2021-04-14 11:58 | P.PNIM_ITS ---
Subjective Subjective Date of Service: 04/15/21 Interval History: No acute issues overnight...no overt bleeding noted Review of Systems Denies CP Denies SOB Denies N/V/D Physical Exam Vital Signs: Vital Signs: Last Vital Signs Temp 98.1 F 04/14/21 04:00 Pulse 78 04/14/21 09:04 Resp 18 04/14/21 09:04 BP 122/53 L 04/14/21 09:04 Pulse Ox 98 04/14/21 09:04 Oxygen Flow Rate 2 04/13/21 18:49 BMI result Body Mass Index 26.9 Const: Other: no acute distress Resp: Other: clear A/P Cardio: Other: -S4 +S1/S2 -S3 M/R/G GI: Other: soft NABS x 4 quads Extrem: Other: no edema Objective Data Active Medications Acetaminophen (Acetaminophen 325 Mg Tablet) 650 mg PO Q6H PRN PRN Reason: Pain, Mild (Pain Scale 1-3) Albuterol Sulfate (Albuterol Sulfate 90 Mcg 8 Gm Inhaler) 2 puff INHALE QID PRN PRN Reason: Wheezing Aspirin (Aspirin 81 Mg Tab.Chew) 81 mg PO DAILY [facility] Last Admin: 04/14/21 08:50 Dose: Not Given Documented by: LEO Non-Admin Reason: held, see md note about holding asa Bisacodyl (Bisacodyl 10 Mg Supp.Rect) 10 mg [place] DAILY PRN PRN Reason: Constipation Clonazepam (Clonazepam 1 Mg Tablet) 1 mg PO BEDTIME [facility] Docusate Sodium (Docusate Sodium 100 Mg Capsule) 100 mg PO DAILY PRN PRN Reason: Constipation Gabapentin (Gabapentin 400 Mg Capsule) 400 mg PO BID [facility] Last Admin: 04/14/21 08:49 Dose: 400 mg Documented by: LEO Lamotrigine (Lamotrigine 25 Mg Tablet) 75 mg PO BID [facility] Last Admin: 04/14/21 08:48 Dose: 75 mg Documented by: LEO Magnesium Hydroxide (Milk Of Magnesia 30 Ml Oral.Susp) 30 ml PO DAILY PRN PRN Reason: Constipation Non-Formulary Medication (Risperidone Microspheres [Risperdal Consta]) 50 mg IM Q14D [facility] Olanzapine (Olanzapine 10 Mg Tablet) 10 mg PO DAILY [facility] Last Admin: 04/14/21 08:49 Dose: 10 mg Documented by: LEO Olanzapine (Olanzapine 10 Mg Tablet) 20 mg PO BEDTIME [facility] Ondansetron HCl (Ondansetron Hcl 4 Mg/2 Ml Vial) 4 mg IVPUSH Q8H PRN PRN Reason: Nausea and Vomiting Phenytoin (Phenytoin Chewable 50 Mg Tab.Chew) 300 mg PO DAILY [facility] Last Admin: 04/14/21 09:15 Dose: 300 mg Documented by: LEO Polyethylene Glycol (Polyethylene Glycol 3350 17 Gm Powd.Pack) 17 gm PO DAILY [facility] Last Admin: 04/14/21 08:50 Dose: 17 gm Documented by: LEO Risperidone (Risperidone 2 Mg Tablet) 2 mg PO BID [facility] Last Admin: 04/14/21 08:49 Dose: 2 mg Documented by: LEO Sodium Chloride (0.9 % Sodium Chloride Flush 3 Ml Syringe) 3 ml IVFLUSH QSHIFT [facility] Last Admin: 04/14/21 06:31 Dose: Not Given Documented by: MANDA Non-Admin Reason: See Note Labs CBC & Chem 7: 04/14/21 06:42 04/14/21 06:42 Labs: Laboratory Results - last 24 hr 04/13/21 04/13/21 04/13/21 19:21 21:00 21:00 MCV 67.8 L MCH 19.2 L MCHC 28.4 L RDW 19.9 H Plt Count 289 MPV 8.7 L Immature Gran % (Auto) 0.4 Neut % (Auto) 51.1 Lymph % (Auto) 34.2 [place] % (Auto) 12.3 H Eos % (Auto) 1.9 Baso % (Auto) 0.1 Lymph # (Auto) 2.4 [place] # (Auto) 0.9 Eos # (Auto) 0.1 Baso # (Auto) 0.0 Abs Immat Gran (auto) 0.03 Absolute Neuts (auto) 3.5 Absolute Nucleated RBC 0.000 Nucleated RBC % (auto) 0.0 PT INR APTT Anion Gap 9 L Estim Creat Clear Calc 56.4 Estimated GFR > 60 Random Glucose 103 Calcium 8.4 Iron 20 L TIBC 322 % Saturation 6 L Unsat Iron Binding 302 Ferritin 12 Total Bilirubin < 0.2 Direct Bilirubin < 0.2 AST 10 D ALT 6 Alkaline Phosphatase 162 H Total Protein 6.1 L Albumin 3.3 L Stool Occult Blood POSITIVE Blood Type Antibody Screen Crossmatch 04/13/21 04/13/21 04/14/21 21:00 21:00 06:42 MCV 73.5 L D MCH 22.0 L MCHC 29.9 L RDW 22.2 H Plt Count 272 MPV 8.8 L Immature Gran % (Auto) 0.4 Neut % (Auto) 65.3 Lymph % (Auto) 22.3 [place] % (Auto) 10.3 Eos % (Auto) 1.6 Baso % (Auto) 0.1 Lymph # (Auto) 1.7 [place] # (Auto) 0.8 Eos # (Auto) 0.1 Baso # (Auto) 0.0 Abs Immat Gran (auto) 0.03 Absolute Neuts (auto) 4.8 Absolute Nucleated RBC 0.000 Nucleated RBC % (auto) 0.0 PT 11.8 INR 1.0 APTT 26.0 Anion Gap Estim Creat Clear Calc Estimated GFR Random Glucose Calcium Iron TIBC % Saturation Unsat Iron Binding Ferritin Total Bilirubin Direct Bilirubin AST ALT Alkaline Phosphatase Total Protein Albumin Stool Occult Blood Blood Type O Positive Antibody Screen NEGATIVE Crossmatch See Detail 04/14/21 06:42 MCV MCH MCHC RDW Plt Count MPV Immature Gran % (Auto) Neut % (Auto) Lymph % (Auto) [place] % (Auto) Eos % (Auto) Baso % (Auto) Lymph # (Auto) [place] # (Auto) Eos # (Auto) Baso # (Auto) Abs Immat Gran (auto) Absolute Neuts (auto) Absolute Nucleated RBC Nucleated RBC % (auto) PT INR APTT Anion Gap 8 L Estim Creat Clear Calc 63.2 Estimated GFR > 60 Random Glucose 90 Calcium 8.0 L Iron TIBC % Saturation Unsat Iron Binding Ferritin Total Bilirubin Direct Bilirubin AST ALT Alkaline Phosphatase Total Protein Albumin Stool Occult Blood Blood Type Antibody Screen Crossmatch Assessment and Plan (1) GI (gastrointestinal bleed): Status: Acute (2) Severe anemia: Status: Acute (3) Paranoid schizophrenia: Status: Acute Plan 81-year-old female who [facility] with abnormal labs found to have microcytic anemia as well as occult stool positive 1.GIB w/ acute microcytic anemia - good response to transfusion - GI to scope 04/16. Will follow recommendations - will hold aspirin - follow CBC 2.Paranoid Schizophrenia - continue outpatient therapies DVT prophylaxis: SCDs Quality Stroke Does the patient have a stroke diagnosis?: No VTE Prior VTE?: No VTE Risk Level:: Medical - moderate - high VTE Device Contraindication: N/A - Device Ordered VTE Drug Contraindication: Treatment Not Indicated
--- NOTE | 2021-04-14 16:04 | PC.NURSE ---
Pt received from main ER: Pt AOX2-3 and offers no complaints. Heart sounds normal and lungs diminished. Pt abd soft and non-tender. Pt noted to be very pale. Pt remains on 2-3L N/C. Purewick attached and draining.
--- NOTE | 2021-04-14 19:48 | PC.NURSE ---
Report taken from Mandy, this RN resuming care. Pt resting in bed at this time, offers no complaints. VSS. Purewick in place, no UO noted in suction canister. Continue to monitor.
[2021-04-14] MEDS: clonazePAM 0.5 MG TABLET 1 MG PO (20:29)
[2021-04-14] MEDS: OLANZapine 10 MG TABLET 20 MG PO (20:30)
--- NOTE | 2021-04-14 20:39 | PC.NURSE ---
Pt medicated per MAY, pills crushed in pudding per request. Pt swallowing without difficulty.
[2021-04-14] MEDS: 0.9 % Sodium Chloride Flush 3 ML SYRINGE IVFLUSH (23:54)
[2021-04-15 00:51] VITALS: BP 101/41; PULSE 94; RESP 14; TEMP 36.7; O2SAT 94
[2021-04-15 05:32] VITALS: BP 112/45; PULSE 69; RESP 14; TEMP 36.6; O2SAT 96
[2021-04-15 07:31] LABS: COVID-19 Test Negative (Negative); IDNOW Serial# 9DD0AD1C
[2021-04-15 07:51] VITALS: BP 110/52; PULSE 72; RESP 14; TEMP 36.7; O2SAT 97
--- NOTE | 2021-04-15 07:51 | PC.NURSE ---
Pt received from slot shift supervisor: Pt AOx2 and offers no complaints. Pt appears very pale. Heart sounds normal and lungs clear. pt abd soft and non-tender. No active signs of bleeding noted. Pt placed and purewick and draining intermittently.
[2021-04-15] MEDS: Aspirin 81 MG TAB.CHEW PO (09:25)
[2021-04-15] MEDS: Gabapentin 400 MG CAPSULE PO ×2 (09:25→20:34)
[2021-04-15] MEDS: OLANZapine 10 MG TABLET PO (09:25)
[2021-04-15] MEDS: polyethylene glycoL 3350 17 GM POWD.PACK PO (09:25)
[2021-04-15] MEDS: risperiDONE 2 MG TABLET PO ×2 (09:25→20:35)
[2021-04-15] MEDS: lamoTRIgine 25 MG TABLET 75 MG PO ×2 (09:25→20:35)
[2021-04-15] MEDS: Phenytoin Chewable 50 MG TAB.CHEW 300 MG PO (09:55)
--- NOTE | 2021-04-15 14:12 | HO.PM.IMPN ---
Subjective Subjective Date of Service: 04/15/21 Interval History: No acute issues overnight...no overt bleeding noted Review of Systems Denies CP Denies SOB Denies N/V/D Physical Exam Vital Signs: Vital Signs: Last Vital Signs Temp 98.0 F 04/15/21 07:51 Pulse 72 04/15/21 07:51 Resp 14 04/15/21 07:51 BP 110/52 L 04/15/21 07:51 Pulse Ox 97 04/15/21 07:51 Oxygen Flow Rate 2 04/13/21 18:49 BMI result Body Mass Index 26.9 Const: Other: no acute distress Resp: Other: clear A/P Cardio: Other: -S4 +S1/S2 -S3 M/R/G GI: Other: soft NABS x 4 quads Extrem: Other: no edema Objective Data Active Medications Acetaminophen (Acetaminophen 325 Mg Tablet) 650 mg PO Q6H PRN PRN Reason: Pain, Mild (Pain Scale 1-3) Albuterol Sulfate (Albuterol Sulfate 90 Mcg 8 Gm Inhaler) 2 puff INHALE QID PRN PRN Reason: Wheezing Aspirin (Aspirin 81 Mg Tab.Chew) 81 mg PO DAILY [facility] Last Admin: 04/15/21 09:25 Dose: 81 mg Documented by: ASHER Clonazepam (Clonazepam 0.5 Mg Tablet) 1 mg PO BEDTIME [facility] Last Admin: 04/14/21 20:29 Dose: 1 mg Documented by: JOSIE Docusate Sodium (Docusate Sodium 100 Mg Capsule) 100 mg PO DAILY PRN PRN Reason: Constipation Gabapentin (Gabapentin 400 Mg Capsule) 400 mg PO BID [facility] Last Admin: 04/15/21 09:25 Dose: 400 mg Documented by: ASHER Lamotrigine (Lamotrigine 25 Mg Tablet) 75 mg PO BID [facility] Last Admin: 04/15/21 09:25 Dose: 75 mg Documented by: ASHER Magnesium Hydroxide (Milk Of Magnesia 30 Ml Oral.Susp) 30 ml PO DAILY PRN PRN Reason: Constipation Non-Formulary Medication (Risperidone Microspheres [Risperdal Consta]) 50 mg IM Q14D [facility] Olanzapine (Olanzapine 10 Mg Tablet) 10 mg PO DAILY [facility] Last Admin: 04/15/21 09:25 Dose: 10 mg Documented by: HO.N-MALIR Olanzapine (Olanzapine 10 Mg Tablet) 20 mg PO BEDTIME [facility] Last Admin: 04/14/21 20:30 Dose: 20 mg Documented by: JOSIE Ondansetron HCl (Ondansetron Hcl 4 Mg/2 Ml Vial) 4 mg IVPUSH Q8H PRN PRN Reason: Nausea and Vomiting Phenytoin (Phenytoin Chewable 50 Mg Tab.Chew) 300 mg PO DAILY [facility] Last Admin: 04/15/21 09:55 Dose: 300 mg Documented by: JEROME-MALBAN Polyethylene Glycol/Electrolytes (Peg 3350/Na Sulf,Bicarb,Cl/Kcl 4,000 Ml Soln.Recon) 240 ml PO Q10M [facility] Stop: 04/15/21 20:41 Risperidone (Risperidone 2 Mg Tablet) 2 mg PO BID [facility] Last Admin: 04/15/21 09:25 Dose: 2 mg Documented by: JEROME-LIDYA Sodium Chloride (0.9 % Sodium Chloride Flush 3 Ml Syringe) 3 ml IVFLUSH QSHIFT [facility] Last Admin: 04/15/21 13:12 Dose: Not Given Documented by: ASHER Non-Admin Reason: Med Not Available Labs CBC & Chem 7: 04/14/21 06:42 04/14/21 06:42 Labs: Laboratory Results - last 24 hr 04/15/21 06:57 COVID-19 ([facility]ODGER) Negative COVID-19 Clin Com See Note Assessment and Plan (1) GI (gastrointestinal bleed): Status: Acute (2) Paranoid schizophrenia: Status: Acute Plan 81-year-old female who presents to the hospital from skilled nursing with abnormal labs found to have microcytic anemia as well as occult stool positive 1.GIB w/ acute microcytic anemia - good response to transfusion - GI to scope 04/16. Miralax this am w dulcoclax. Golytely starting tonight 1800 -NPO after midnight -will hold aspirin -follow CBC 2.Paranoid Schizophrenia - continue outpatient therapies DVT prophylaxis: SCDs Quality Stroke Does the patient have a stroke diagnosis?: No VTE Prior VTE?: No VTE Risk Level:: Medical - moderate - high VTE Device Contraindication: N/A - Device Ordered VTE Drug Contraindication: Treatment Not Indicated
[2021-04-15 14:14] VITALS: BP 92/59; PULSE 69; RESP 14; O2SAT 95
[2021-04-15 14:31] VITALS: BP 111/43; PULSE 78; RESP 14; O2SAT 96
[2021-04-15] MEDS: bisacodyL 5 MG TABLET.DR 10 MG PO (14:32)
--- NOTE | 2021-04-15 15:31 | MHC.CM.PN ---
Addendum entered by Orquidea Parish 04/16/21 12:41: PT IS A LTC RESIDENT OF [facility] PT IS A [facility] BED HOLD AND WILL RETURN TO SNF AT [place] VIA BLS Addendum entered by Orquidea Parish 04/16/21 12:09: CM RECEIVED A MESSAGE FROM [facility] INDICATING THIS PT IS NOT A RESIDENT WITH THEM. CM CALLED PTS DAUGHTER, MIRTHA, AGAIN TO DISCUSS THIS HOWEVER THE CALL WENT TO . A MESSAGE WAS LEFT REQUESTING A RETURN CALL. Original Note: CM CALLED PS DAUGHTER/HCP MIRTHA MCCARTHY ([phone]) WHO CONFIRMS PT IS A LTC RESIDENT OF [facility]. SHE REPORTS PT IS WHEEL CHAIR BOUND AT BASELINE PT HAS A HCP ON FILE MIRTHA DOES NOT KNOW THE PTS PCP BUT SAYS SHE USES THE ONE AT THE SNF IMM DELIVERED, ORIGINAL WILL BE MAILED TO MIRTHA, COPY SENT TO [facility]DS CURRENT DC PLAN IS RETURN TO [facility] VIA BLS
[2021-04-15] MEDS: PEG 3350/Na Sulf,Bicarb,Cl/KCL 4,000 ML SOLN.RECON 4000 ML PO (18:25)
[2021-04-15 20:00] VITALS: BP 122/53; PULSE 80; RESP 18; TEMP 36.4; O2SAT 94
[2021-04-15] MEDS: clonazePAM 0.5 MG TABLET 1 MG PO (20:34)
[2021-04-15] MEDS: OLANZapine 10 MG TABLET 20 MG PO (20:35)
[2021-04-15] MEDS: 0.9 % Sodium Chloride Flush 3 ML SYRINGE IVFLUSH (20:35)
[2021-04-16 04:47] VITALS: BP 110/65; PULSE 70; RESP 14; TEMP 36.4; O2SAT 94
[2021-04-16 06:53] LABS: MANUAL DIFF FLAG NO
[2021-04-16 06:59] LABS: Basophils Percent Auto 0.5 % (0-2); Eosinophils Absolute Auto 0.2 X10*3/uL (0.0-0.4); Eosinophils Percent Auto 2.2 % (0-4); Hematocrit 35.4 % (37.0-47.0); Hemoglobin 10.1 g/dl (12.0-16.0); Imm Gran Abs Auto 0.02 X10*3/uL (0.00-0.03); Imm Gran Pct Auto 0.2 % (0.0-0.4); Lymphocytes Absolute Auto 1.7 X10*3/uL (1.2-4.9); Lymphocytes Percent Auto 21.3 % (20-40); Mean Corpuscular HGB Conc 28.5 g/dl (31.0-35.0); Mean Platelet Volume 8.9 fL (9.4-12.3); Monocytes Percent Auto 12.6 % (2-11); Neutrophils Absolute Auto 5.1 x10*3/uL (2.0-8.3); Neutrophils Percent Auto 63.2 % (45-73); Platelet Count 299 X10*3/uL (160-400); Red Cell Distribution Width 24.7 % (11.0-16.0); White Blood Count 8.1 X10*3/uL (4.8-10.8)
[2021-04-16 07:10] LABS: Prothrombin Time 11.9 SEC (9.9-13.0)
--- NOTE | 2021-04-16 07:13 | PC.NURSE ---
Pt received from director of event sales: Pt was not given any of the go-lightly for pending colonscopy today. As per director of event sales nurse, pt too disoriented to drink any of the fluid. This RN at bedside for assessment, pt tired but remains AOX2-3 which is baseline for pt. Pending hospitalist list, but will make attending aware.
--- NOTE | 2021-04-16 07:16 | PC.NURSE ---
Pt received from shiftman: Pt AOx2-3 and offers no complaints. Pt is still pale. Heart sounds normal and lungs clear. Pt remains on 2L N/C. Pt abd soft and non-tender. Pt remains on purewick. Pt remains on clear liquid diet for pending colonscopy today.
[2021-04-16 07:24] LABS: Alanine Aminotransferase 6 U/L (0-31); Albumin Level 3.3 g/dL (3.5-5.0); Alkaline Phosphatase 155 U/L (39-117); Aspartate Amino Transferase 10 U/L (5-31); Bilirubin Total 0.2 mg/dL (0.0-1.0); Blood Urea Nitrogen 11 mg/dL (9-16); Calcium 8.8 mg/dL (8.4-10.2); Creatinine Clr Calc Pharmacy 56.4; Estimated Glomerular Filt Rate > 60; Glucose Fasting 87 mg/dL (60-99); Total Protein 6.3 g/dL (6.5-8.0)
[2021-04-16 07:31] LABS: Anion Gap 9 (12-20); Carbon Dioxide 36 mmol/L (22-29); Chloride 104 mmol/L (96-108); Potassium 4.8 mmol/L (3.3-5.1); Sodium 144 mmol/L (135-145)
[2021-04-16 08:04] VITALS: BP 117/51; PULSE 84; RESP 16; TEMP 36.3; O2SAT 96
[2021-04-16] MEDS: OLANZapine 10 MG TABLET PO (08:27)
[2021-04-16] MEDS: risperiDONE 2 MG TABLET PO ×2 (08:27→20:53)
[2021-04-16] MEDS: Aspirin 81 MG TAB.CHEW PO (08:27)
[2021-04-16] MEDS: lamoTRIgine 25 MG TABLET 75 MG PO ×2 (08:27→20:54)
[2021-04-16] MEDS: Gabapentin 400 MG CAPSULE PO ×2 (08:27→20:53)
--- NOTE | 2021-04-16 09:09 | MHC.CDI.CONC ---
CDI Concurrent Query Documentation Clarification: PHYSICIAN'S DOCUMENTATION REQUEST Date of Query: 04/16/21 0909 Patient Name: Nancy Arroyo Admit Date: 04/13/21 Dear Doctor, A review of the medical record indicates additional documentation may be needed. Please review below and update the documentation accordingly. Clinical Indicators: Risk Factors/Clinical Indicators/Treatments Shortness of breath, dizziness, Gi bleed likely due to anemia, occult positive stool. HGB dropped from 11.9 to 5.9 HCT 20.8 Transfused 2 units PRBC with good results. GI note 02/11 - Iron deficiency anemia probably slow loss. Based on the above, could you clarify in the Progress Notes which of the following is the most likely type of anemia you are evaluating, treating, and/or monitoring? Chronic iron deficiency anemia due to acute blood loss Chronic iron deficiency anemia due to blood loss Acute blood loss anemia Other ? please specify Unable to determine Use of terms such as suspected, likely, concern for, or probable (associated with a specific diagnosis that is being evaluated, monitored, or treated as if it exists) are acceptable and can be coded in the inpatient setting, when documented at the time of discharge. Thank you, Rach Brunson [facility], CDIS Extension: [phone] Please use your independent medical judgment in providing your response. THIS QUERY IS PART OF THE PERMANENT MEDICAL RECORD Provider Response: Other Other Diagnosis: chronic iron deficiency anemia due to blood loss
[2021-04-16] MEDS: Phenytoin Chewable 50 MG TAB.CHEW 300 MG PO (10:56)
--- NOTE | 2021-04-16 11:18 | PC.NURSE ---
Dr Duncan made aware of pt unable to to drink Go-lytely during casino shift manager. relays pt will be due to colonoscopy sometime in the afternoon, so pt has been drinking a cup of fluid as she can tolerate. Pt now jail through 1400mL container. RN will continue to monitor.
--- NOTE | 2021-04-16 12:34 | PC.NURSE ---
Pt tolerated about 60% of go-lyely. Pt unable to drink anymore. No BM noted at this time. Pt still pending colonscopy today. Pt remains on clear liquids.
[2021-04-16 12:50] VITALS: BP 129/54; PULSE 83; RESP 14; O2SAT 94
--- NOTE | 2021-04-16 12:52 | PC.NURSE ---
Addendum entered by Mandy Chaudhry RN 04/16/21 13:02: Vitals also taken at the time of fall, and all within normal limits. Pt currently back in bed and resting comfortably. Pt also reminded to call for assistance and to not get out of bed alone. Original Note: Pt found on floor in upright position by PCT Yamileth. RN to bedside immediately. No LOC noted. Neuro assessment completed and no deviations noted from baseline. When asked, pt states she hit the top of her head. Security called for assistance in getting pt back up to bed. Dr Duncan made aware, and no further orders received. RN will continue to monitor.
[2021-04-16 13:38] VITALS: BP 138/45; PULSE 66; RESP 16; O2SAT 97
--- NOTE | 2021-04-16 13:39 | HO.PM.IMPN ---
Subjective Subjective Date of Service: 04/16/21 Interval History: No acute issues overnight...no overt bleeding noted. Did nnot receive prep Review of Systems Denies CP Denies SOB Denies N/V/D Physical Exam Vital Signs: Vital Signs: Last Vital Signs Temp 97.4 F 04/16/21 08:04 Pulse 66 04/16/21 13:38 Resp 16 04/16/21 13:38 BP 138/45 L 04/16/21 13:38 Pulse Ox 97 04/16/21 13:38 Oxygen Flow Rate 2 04/13/21 18:49 BMI result Body Mass Index 26.9 Const: Other: no acute distress Resp: Other: clear A/P Cardio: Other: -S4 +S1/S2 -S3 M/R/G GI: Other: soft NABS x 4 quads Extrem: Other: no edema Objective Data Active Medications Acetaminophen (Acetaminophen 325 Mg Tablet) 650 mg PO Q6H PRN PRN Reason: Pain, Mild (Pain Scale 1-3) Albuterol Sulfate (Albuterol Sulfate 90 Mcg 8 Gm Inhaler) 2 puff INHALE QID PRN PRN Reason: Wheezing Aspirin (Aspirin 81 Mg Tab.Chew) 81 mg PO DAILY [facility] Last Admin: 04/16/21 08:27 Dose: 81 mg Documented by: ASHER Clonazepam (Clonazepam 0.5 Mg Tablet) 1 mg PO BEDTIME [facility] Last Admin: 04/15/21 20:34 Dose: 1 mg Documented by: BRENDAN Docusate Sodium (Docusate Sodium 100 Mg Capsule) 100 mg PO DAILY PRN PRN Reason: Constipation Gabapentin (Gabapentin 400 Mg Capsule) 400 mg PO BID [facility] Last Admin: 04/16/21 08:27 Dose: 400 mg Documented by: ASHER Lamotrigine (Lamotrigine 25 Mg Tablet) 75 mg PO BID [facility] Last Admin: 04/16/21 08:27 Dose: 75 mg Documented by: ASHER Magnesium Hydroxide (Milk Of Magnesia 30 Ml Oral.Susp) 30 ml PO DAILY PRN PRN Reason: Constipation Non-Formulary Medication (Risperidone Microspheres [Risperdal Consta]) 50 mg IM Q14D [facility] Olanzapine (Olanzapine 10 Mg Tablet) 10 mg PO DAILY [facility] Last Admin: 04/16/21 08:27 Dose: 10 mg Documented by: ASHER Olanzapine (Olanzapine 10 Mg Tablet) 20 mg PO BEDTIME [facility] Last Admin: 04/15/21 20:35 Dose: 20 mg Documented by: BRENDAN Ondansetron HCl (Ondansetron Hcl 4 Mg/2 Ml Vial) 4 mg IVPUSH Q8H PRN PRN Reason: Nausea and Vomiting Phenytoin (Phenytoin Chewable 50 Mg Tab.Chew) 300 mg PO DAILY [facility] Last Admin: 04/16/21 10:56 Dose: 300 mg Documented by: ASHER Risperidone (Risperidone 2 Mg Tablet) 2 mg PO BID [facility] Last Admin: 04/16/21 08:27 Dose: 2 mg Documented by: ASHRE Sodium Chloride (0.9 % Sodium Chloride Flush 3 Ml Syringe) 3 ml IVFLUSH QSHIFT [facility] Last Admin: 04/16/21 07:07 Dose: Not Given Documented by: ASHER Non-Admin Reason: Med Not Available Labs CBC & Chem 7: 04/16/21 06:39 04/16/21 06:39 Labs: Laboratory Results - last 24 hr 04/16/21 04/16/21 04/16/21 06:39 06:39 06:39 MCV 77.0 L MCH 22.0 L MCHC 28.5 L RDW 24.7 H Plt Count 299 MPV 8.9 L Immature Gran % (Auto) 0.2 Neut % (Auto) 63.2 Lymph % (Auto) 21.3 [place] % (Auto) 12.6 H Eos % (Auto) 2.2 Baso % (Auto) 0.5 Lymph # (Auto) 1.7 [place] # (Auto) 1.0 Eos # (Auto) 0.2 Baso # (Auto) 0.0 Abs Immat Gran (auto) 0.02 Absolute Neuts (auto) 5.1 Absolute Nucleated RBC 0.000 Nucleated RBC % (auto) 0.0 PT 11.9 INR 1.0 Anion Gap 9 L Estim Creat Clear Calc 56.4 Estimated GFR > 60 Fasting Glucose 87 Calcium 8.8 D Total Bilirubin 0.2 AST 10 ALT 6 Alkaline Phosphatase 155 H Total Protein 6.3 L Albumin 3.3 L Assessment and Plan (1) GI (gastrointestinal bleed): Status: Acute (2) Paranoid schizophrenia: Status: Acute Plan 81-year-old female who [facility] with abnormal labs found to have microcytic anemia as well as occult stool positive 1.GIB w/ acute microcytic anemia - Hgb stable - GI to scope 04/17. Miralax this am w dulcoclax. Golytely starting tonight 1800 -NPO after midnight -will hold aspirin -follow CBC 2.Paranoid Schizophrenia - continue outpatient therapies DVT prophylaxis: SCDs Quality Stroke Does the patient have a stroke diagnosis?: No VTE Prior VTE?: No VTE Risk Level:: Medical - moderate - high VTE Device Contraindication: N/A - Device Ordered VTE Drug Contraindication: Treatment Not Indicated
[2021-04-16 20:41] VITALS: BP 167/68; PULSE 84; RESP 12; TEMP 36.6; O2SAT 96
[2021-04-16] MEDS: OLANZapine 10 MG TABLET 20 MG PO (20:53)
[2021-04-16] MEDS: clonazePAM 0.5 MG TABLET 1 MG PO (20:53)
[2021-04-17] VITALS (8 sets, daily range): BP systolic 130–155; BP diastolic 50–72; PULSE 71–87; RESP 14–18; TEMP 36.3–36.9; O2SAT 94–98
--- NOTE | 2021-04-17 03:16 | PC.NURSE ---
PT incontinent in bed changed bedding and gown on patient. new blankets given.
--- NOTE | 2021-04-17 06:27 | PC.NURSE ---
This RN assumed care at 1900. Patient incontinent, cleaned up. Patient only able to tolerate a small amount of the GoLitely. Patient ripped out IV, new line was placed.
[2021-04-17 07:06] LABS: MANUAL DIFF FLAG NO
[2021-04-17 07:09] LABS: Basophils Percent Auto 0.4 % (0-2); Eosinophils Absolute Auto 0.2 X10*3/uL (0.0-0.4); Eosinophils Percent Auto 2.2 % (0-4); Imm Gran Abs Auto 0.02 X10*3/uL (0.00-0.03); Imm Gran Pct Auto 0.3 % (0.0-0.4); Lymphocytes Absolute Auto 1.9 X10*3/uL (1.2-4.9); Lymphocytes Percent Auto 26.8 % (20-40); Mean Corpuscular HGB Conc 29.4 g/dl (31.0-35.0); Mean Corpuscular Hemoglobin 22.3 pg (27.0-33.0); Mean Corpuscular Volume 75.7 fL (80.0-98.0); Mean Platelet Volume 9.2 fL (9.4-12.3); Monocytes Absolute Auto 0.9 X10*3/uL (0.1-1.2); Monocytes Percent Auto 13.2 % (2-11); Neutrophils Absolute Auto 3.9 x10*3/uL (2.0-8.3); Neutrophils Percent Auto 57.1 % (45-73); Platelet Count 289 X10*3/uL (160-400); Red Blood Count 4.49 X10*6/uL (4.20-5.50); Red Cell Distribution Width 24.9 % (11.0-16.0); White Blood Count 6.9 X10*3/uL (4.8-10.8)
[2021-04-17 07:45] LABS: Alanine Aminotransferase 10 U/L (0-31); Albumin Level 3.3 g/dL (3.5-5.0); Alkaline Phosphatase 168 U/L (39-117); Anion Gap 10 (12-20); Aspartate Amino Transferase 11 U/L (5-31); Bilirubin Total 0.2 mg/dL (0.0-1.0); Blood Urea Nitrogen 7 mg/dL (9-16); Calcium 8.5 mg/dL (8.4-10.2); Carbon Dioxide 34 mmol/L (22-29); Chloride 103 mmol/L (96-108); Creatinine Clr Calc Pharmacy 62.1; Estimated Glomerular Filt Rate > 60; Glucose Fasting 84 mg/dL (60-99); Potassium 3.8 mmol/L (3.3-5.1); Sodium 143 mmol/L (135-145); Total Protein 6.3 g/dL (6.5-8.0)
[2021-04-17] MEDS: Sodium Phosphate,Mono-Dibasic 133 ML ENEMA 266 ML PR (10:08)
[2021-04-17] MEDS: 0.9 % Sodium Chloride Flush 3 ML SYRINGE IVFLUSH (10:12)
--- NOTE | 2021-04-17 11:03 | PC.NURSE ---
brought patient from the ed overflow. moved from bed to a stretcher with assistance, incontinence of liquid brown stool noted. 2 enemas alredy given per primary rn.
--- NOTE | 2021-04-17 11:07 | HO.ANESPROP2 ---
[facility] Active Problems Active Problems: All Active Problems (Updated 04/14/21 @ 12:09 by Braulio Duncan DO) Paranoid schizophrenia (Acute) Severe anemia (Acute) GI (gastrointestinal bleed) (Acute) Past Medical History Medical History (Updated 04/14/21 @ 12:09 by Braulio Duncan DO) Atherosclerotic heart disease of [place] coronary artery with unspecified angina pectoris Bilateral cataracts Candidiasis of skin and nail Constipation COPD (chronic obstructive pulmonary disease) COVID-19 vaccine administered Degenerative disease of nervous system Diaphragmatic hernia DNI (do not intubate) DNR (do not resuscitate) Dysphagia Essential tremor Family history of diseases of the blood and blood-forming organs and certain disorders involving the immune mechanism GERD (gastroesophageal reflux disease) HTN (hypertension) Hyperlipidemia Incontinence Iron deficiency anemia Overactive bladder Paranoid schizophrenia Postmenopausal atrophic vaginitis Urinary tract infection Urine retention Vitamin B12 deficiency (dietary) anemia Vitamin D deficiency Family History Family History (Updated 04/14/21 @ 06:55 by Chris Moreno MD) Other No family history of coronary artery disease Family history of problems with anesthesia: No Surgical History Surgical History (Updated 04/14/21 @ 06:56 by Chris Moreno MD) No pertinent past surgical history History of Problems with Anesthesia: No Social History Social History Household Members: None Housing: Care Home Unable to assess alcohol history related to: Unknown Advance Directives: Yes Advance Directives on File: Yes Advance Directives Date on File: 09/05/20 service: No Current occupational status: retired Meds Allergies Allergy/AdvReac Type Severity Reaction Status Date / Time divalproex sodium Allergy Unknown UNKNOWN Verified 08/30/20 06:22 [From Depakote] Active Medications: Current Medications Acetaminophen (Acetaminophen 325 Mg Tablet) 650 mg PO Q6H PRN PRN Reason: Pain, Mild (Pain Scale 1-3) Albuterol Sulfate (Albuterol Sulfate 90 Mcg 8 Gm Inhaler) 2 puff INHALE QID PRN PRN Reason: Wheezing Aspirin (Aspirin 81 Mg Tab.Chew) 81 mg PO DAILY [facility] Last Admin: 04/17/21 10:14 Dose: Not Given Documented by: Clonazepam (Clonazepam 0.5 Mg Tablet) 1 mg PO BEDTIME [facility] Last Admin: 04/16/21 20:53 Dose: 1 mg Documented by: Docusate Sodium (Docusate Sodium 100 Mg Capsule) 100 mg PO DAILY PRN PRN Reason: Constipation Gabapentin (Gabapentin 400 Mg Capsule) 400 mg PO BID [facility] Last Admin: 04/17/21 10:15 Dose: Not Given Documented by: Lamotrigine (Lamotrigine 25 Mg Tablet) 75 mg PO BID [facility] Last Admin: 04/17/21 10:15 Dose: Not Given Documented by: Magnesium Hydroxide (Milk Of Magnesia 30 Ml Oral.Susp) 30 ml PO DAILY PRN PRN Reason: Constipation Non-Formulary Medication (Risperidone Microspheres [Risperdal Consta]) 50 mg IM Q14D [facility] Olanzapine (Olanzapine 10 Mg Tablet) 10 mg PO DAILY [facility] Last Admin: 04/17/21 10:15 Dose: Not Given Documented by: Olanzapine (Olanzapine 10 Mg Tablet) 20 mg PO BEDTIME [facility] Last Admin: 04/16/21 20:53 Dose: 20 mg Documented by: Ondansetron HCl (Ondansetron Hcl 4 Mg/2 Ml Vial) 4 mg IVPUSH Q8H PRN PRN Reason: Nausea and Vomiting Phenytoin (Phenytoin Chewable 50 Mg Tab.Chew) 300 mg PO DAILY [facility] Last Admin: 04/17/21 10:16 Dose: Not Given Documented by: Risperidone (Risperidone 2 Mg Tablet) 2 mg PO BID [facility] Last Admin: 04/17/21 10:16 Dose: Not Given Documented by: Sodium Chloride (0.9 % Sodium Chloride Flush 3 Ml Syringe) 3 ml IVFLUSH QSHIFT [facility] Last Admin: 04/17/21 10:12 Dose: 3 ml Documented by: Home Medications Medication Instructions Recorded Confirmed Last Taken Type Al-Mag w/ SIM 08/30/20 04/13/21 Unknown History acetaminophen 325 mg tablet 650 mg PO Q6H PRN 08/30/20 04/13/21 Unknown History (Tylenol) acetaminophen 650 mg rectal 650 mg DE Q6H PRN 08/30/20 04/13/21 Unknown History suppository albuterol sulfate 90 mcg/actuation 2 inh INHALATION QID PRN 08/30/20 04/13/21 Unknown History aerosol inhaler aspirin 81 mg chewable tablet 81 mg PO DAILY 08/30/20 04/13/21 08/29/20 History bisacodyl 10 mg rectal suppository 10 mg DE DAILY PRN 08/30/20 04/13/21 Unknown History clonazepam 1 mg tablet (Klonopin) 1 mg PO BEDTIME 08/30/20 04/13/21 08/29/20 History gabapentin 400 mg tablet 400 mg PO BID 08/30/20 04/13/21 08/29/20 History lamotrigine 150 mg tablet 75 mg PO BID 08/30/20 04/13/21 08/29/20 History magnesium hydroxide 400 mg/5 mL 30 ml PO DAILY PRN 08/30/20 04/13/21 Unknown History oral suspension (Milk of Magnesia) olanzapine 10 mg tablet (Zyprexa) 10 mg PO DAILY 08/30/20 04/13/21 08/29/20 History olanzapine 20 mg tablet (Zyprexa) 20 mg PO QPM 08/30/20 04/13/21 08/29/20 History phenytoin 50 mg chewable tablet 300 mg PO DAILY 08/30/20 04/13/21 08/29/20 History (Dilantin Infatabs) polyethylene glycol 3350 17 17 g PO DAILY 08/30/20 04/13/21 08/29/20 History gram/dose oral powder risperidone 2 mg tablet 2 mg PO BID 08/30/20 04/13/21 08/29/20 History risperidone microspheres 50 mg/2 50 mg IM Q14D 08/30/20 04/13/21 08/24/20 History mL intramuscular susp,ext release (Risperdal Consta) Exam Exam Date and Time: April 17, 2021 1107 Height,Weight and Vital Signs: Height 5 ft 1 in Weight 64.5 kg Last Vital Signs Temp 97.8 F 04/16/21 20:41 Pulse 72 04/17/21 07:26 Resp 14 04/17/21 07:26 BP 136/57 L 04/17/21 07:26 Pulse Ox 96 04/17/21 07:26 Oxygen Flow Rate 2 04/13/21 18:49 Pertinent Lab Results Pertinent Lab Results: Laboratory Tests 04/13/21 04/13/21 04/13/21 19:21 21:00 21:00 WBC 6.9 RBC 3.07 L Hgb 5.9 L* Hct 20.8 L* MCV 67.8 L MCH 19.2 L MCHC 28.4 L RDW 19.9 H Plt Count 289 MPV 8.7 L Immature Gran % (Auto) 0.4 Neut % (Auto) 51.1 Lymph % (Auto) 34.2 [place] % (Auto) 12.3 H Eos % (Auto) 1.9 Baso % (Auto) 0.1 Lymph # (Auto) 2.4 [place] # (Auto) 0.9 Eos # (Auto) 0.1 Baso # (Auto) 0.0 Abs Immat Gran (auto) 0.03 Absolute Neuts (auto) 3.5 Absolute Nucleated RBC 0.000 Nucleated RBC % (auto) 0.0 PT INR APTT Sodium 141 Potassium 4.0 Chloride 106 Carbon Dioxide 30 H Anion Gap 9 L BUN 15 Creatinine 0.65 Estim Creat Clear Calc 56.4 Estimated GFR > 60 Random Glucose 103 Fasting Glucose Calcium 8.4 Iron 20 L TIBC 322 % Saturation 6 L Unsat Iron Binding 302 Ferritin 12 Total Bilirubin < 0.2 Direct Bilirubin < 0.2 AST 10 D ALT 6 Alkaline Phosphatase 162 H Total Protein 6.1 L Albumin 3.3 L Stool Occult Blood POSITIVE COVID-19 ([facility]ODGER) COVID-19 Clin Com Blood Type Antibody Screen Crossmatch 04/13/21 04/13/21 04/14/21 21:00 21:00 06:42 WBC 7.4 RBC 4.27 D Hgb 9.4 L D Hct 31.4 L D MCV 73.5 L D MCH 22.0 L MCHC 29.9 L RDW 22.2 H Plt Count 272 MPV 8.8 L Immature Gran % (Auto) 0.4 Neut % (Auto) 65.3 Lymph % (Auto) 22.3 [place] % (Auto) 10.3 Eos % (Auto) 1.6 Baso % (Auto) 0.1 Lymph # (Auto) 1.7 [place] # (Auto) 0.8 Eos # (Auto) 0.1 Baso # (Auto) 0.0 Abs Immat Gran (auto) 0.03 Absolute Neuts (auto) 4.8 Absolute Nucleated RBC 0.000 Nucleated RBC % (auto) 0.0 PT 11.8 INR 1.0 APTT 26.0 Sodium Potassium Chloride Carbon Dioxide Anion Gap BUN Creatinine Estim Creat Clear Calc Estimated GFR Random Glucose Fasting Glucose Calcium Iron TIBC % Saturation Unsat Iron Binding Ferritin Total Bilirubin Direct Bilirubin AST ALT Alkaline Phosphatase Total Protein Albumin Stool Occult Blood COVID-19 ([facility]ODGER) COVID-19 Clin Com Blood Type O Positive Antibody Screen NEGATIVE Crossmatch See Detail 04/14/21 04/15/21 04/16/21 06:42 06:57 06:39 WBC RBC Hgb Hct MCV MCH MCHC RDW Plt Count MPV Immature Gran % (Auto) Neut % (Auto) Lymph % (Auto) [place] % (Auto) Eos % (Auto) Baso % (Auto) Lymph # (Auto) [place] # (Auto) Eos # (Auto) Baso # (Auto) Abs Immat Gran (auto) Absolute Neuts (auto) Absolute Nucleated RBC Nucleated RBC % (auto) PT 11.9 INR 1.0 APTT Sodium 142 Potassium 3.9 Chloride 108 Carbon Dioxide 30 H Anion Gap 8 L BUN 12 Creatinine 0.58 Estim Creat Clear Calc 63.2 Estimated GFR > 60 Random Glucose 90 Fasting Glucose Calcium 8.0 L Iron TIBC % Saturation Unsat Iron Binding Ferritin Total Bilirubin Direct Bilirubin AST ALT Alkaline Phosphatase Total Protein Albumin Stool Occult Blood COVID-19 (RODGER) Negative COVID-19 Clin Com See Note Blood Type Antibody Screen Crossmatch 04/16/21 04/16/21 04/17/21 06:39 06:39 06:54 WBC 8.1 6.9 RBC 4.60 4.49 Hgb 10.1 L 10.0 L Hct 35.4 L 34.0 L MCV 77.0 L 75.7 L MCH 22.0 L 22.3 L MCHC 28.5 L 29.4 L RDW 24.7 H 24.9 H Plt Count 299 289 MPV 8.9 L 9.2 L Immature Gran % (Auto) 0.2 0.3 Neut % (Auto) 63.2 57.1 Lymph % (Auto) 21.3 26.8 [place] % (Auto) 12.6 H 13.2 H Eos % (Auto) 2.2 2.2 Baso % (Auto) 0.5 0.4 Lymph # (Auto) 1.7 1.9 [place] # (Auto) 1.0 0.9 Eos # (Auto) 0.2 0.2 Baso # (Auto) 0.0 0.0 Abs Immat Gran (auto) 0.02 0.02 Absolute Neuts (auto) 5.1 3.9 Absolute Nucleated RBC 0.000 0.000 Nucleated RBC % (auto) 0.0 0.0 PT INR APTT Sodium 144 Potassium 4.8 D Chloride 104 Carbon Dioxide 36 H Anion Gap 9 L BUN 11 Creatinine 0.65 Estim Creat Clear Calc 56.4 Estimated GFR > 60 Random Glucose Fasting Glucose 87 Calcium 8.8 D Iron TIBC % Saturation Unsat Iron Binding Ferritin Total Bilirubin 0.2 Direct Bilirubin AST 10 ALT 6 Alkaline Phosphatase 155 H Total Protein 6.3 L Albumin 3.3 L Stool Occult Blood COVID-19 (RODGER) COVID-[employer] Blood Type Antibody Screen Crossmatch 04/17/21 06:54 WBC RBC Hgb Hct MCV MCH MCHC RDW Plt Count MPV Immature Gran % (Auto) Neut % (Auto) Lymph % (Auto) [place] % (Auto) Eos % (Auto) Baso % (Auto) Lymph # (Auto) [place] # (Auto) Eos # (Auto) Baso # (Auto) Abs Immat Gran (auto) Absolute Neuts (auto) Absolute Nucleated RBC Nucleated RBC % (auto) PT INR APTT Sodium 143 Potassium 3.8 D Chloride 103 Carbon Dioxide 34 H Anion Gap 10 L BUN 7 L Creatinine 0.59 Estim Creat Clear Calc 62.1 Estimated GFR > 60 Random Glucose Fasting Glucose 84 Calcium 8.5 Iron TIBC % Saturation Unsat Iron Binding Ferritin Total Bilirubin 0.2 Direct Bilirubin AST 11 ALT 10 Alkaline Phosphatase 168 H Total Protein 6.3 L Albumin 3.3 L Stool Occult Blood COVID-19 (RODGER) COVID-[employer] Blood Type Antibody Screen Crossmatch Airway Mallampati Class: III TM Dist: >3cm Neck ROM: Limited Denture: Upper and Lower Assessment and Plan Assessment Anesthesia Assessment: Anesthesia Plan Discussed and Chart Reviewed Final Anesthetic Review Family History of Problems with Anesthesia: No History of Problems with Anesthesia: No NPO: Yes ASA Class: II and III Final Preanesthetic Review: No Changes in Pt Med Stat, Meds/Allgs Chart Reviewed, Consent Obtained/Reviewed and Anes Risks/Benef Reviewed Patient Risk: Intermediate Procedure Risk: Low Anesthetic Plan Anesthetic Plan: MAC: Disposition: Standard PACU
[2021-04-17] MEDS: Sodium Phosphate,Mono-Dibasic 133 ML ENEMA PR (11:30)
--- NOTE | 2021-04-17 11:34 | PC.NURSE ---
third enema given with brown liquid stool. piña in color. no solids. florentino care provided. repositioned. consents over the phone with hcp daughter bijal mtz.
[2021-04-17] MEDS: Lactated Ringers 1,000 ML 100 ML IVCONT (11:36)
--- NOTE | 2021-04-17 11:40 | MHC.SHP ---
Pre-Procedural Eval Section A Date of Service: 04/17/21 The patient is an INPATIENT: Yes The History & Physical has been completed within 30 days and I have reviewed it.: Yes Section B Chief Complaint: acute anemia Allergies: Allergies Allergy/AdvReac Type Severity Reaction Status Date / Time divalproex sodium Allergy Unknown UNKNOWN Verified 08/30/20 06:22 [[facility]] Plan I have reviewed the history and physical and performed a pertinent physical examination on my patient. No changes have occurred unless specified.
--- NOTE | 2021-04-17 11:40 | PM.OP ---
Brief Operative Note Date of Service: 04/17/21 Pre-op diagnosis: anemia Post-op diagnosis: same Procedure: egd,colonoscopy Surgeon: La Naylor MD Anesthesia: MAC Was an Retail Department Reset used for this Procedure?: No Estimated blood loss (mL): 0 Condition: stable Disposition: PACU
--- NOTE | 2021-04-17 11:41 | W.PM.OPN ---
Operative Note Operative Note Date of Service: 04/17/21 Narrative: Operative Information Procedure Description: EGD, Colonoscopy FLEXIBLE TRANSORAL UPPER GASTROINTESTINAL ENDOSCOPY AND COLONOSCOPY PROCEDURE NOTE UPPER ENDOSCOPY Consent: Indications for the procedure and potential complications of bleeding, perforation, reaction to medications and missed diagnosis were discussed with the patient and informed consent was obtained. Instrument: Olympus GIF H 190 J mid size upper endoscope Monitoring: Vital signs and clinical assessment, continuous EKG monitoring, Pulse oximetry, Carbon Dioxide monitoring and blood pressure monitoring were done throughout the procedure. Procedure: The patient was placed in the left lateral decubitis position and pre-procedure medications were administered and a bite block was placed. The endoscope was inserted into the mouth and advanced under direct vision to the third part of duodenum. A careful inspection was made as the upper endoscope was withdrawn including a retroflexed examination of the proximal stomach; Findings and interventions are described below. Findings: Larynx:normal Esophagus: GE junction at 30 cm, diaphragm hiatus at 37 cm, consistent with 7 cm fixed hiatal hernia. erosive esophagitis noted LA grade A with surrounding erythema and friable tissue Stomach: many strealy erosions and superficial ucleraations in mid body of stomach.. Biopsies were obtained. Grade 2 flap valve on retroflexed examination of the cardia. Duodenum: Normal bulb and descending duodenum, bx taken Intervention: Biopsies as noted above COLONOSCOPY Instrument: Olympus variable stiffness pediatric scope 190L Colonoscopy Monitoring: Vital signs and clinical assessment, continuous EKG monitoring, Pulse oximetry, Carbon Dioxide monitoring and blood pressure monitoring were done throughout the procedure. Colon withdrawal time was 15 minutes. Procedure: The patient was placed in the left lateral decubitis position and pre-procedure medications were administered. After a digital rectal examination of the ano-rectum, the video colonoscope was inserted into the rectum and advanced through the colon to the cecum/TI. The colonoscope was slowly withdrawn in a retrograde panoramic fashion and the colon mucosa was carefully examined including a retroflexed view of the rectum. Findings and interventions are described below. Procedure Difficulty:moderate, preesure applied Findings: Terminal Ileum-not intubated Cecum:normal Ascending Colon: normal Transverse Colon -normal Descending Colon:normal Sigmoid Colon:moderate diverticulosis Rectum: Retroflexion with small internal hemorrhoids, grade I Anorectum - normal Colon preparation: [place] Bowel Preparation Scale Right colon; 2 Transverse colon: 1 Left colon; 1 (0 = Unprepared colon segment with mucosa not seen due to solid stool that cannot be cleared. 1 = Portion of mucosa of the colon segment seen, but other areas of the colon segment not well seen due to staining, residual stool and/or opaque liquid. 2 = Minor amount of residual staining, small fragments of stool and/or opaque liquid, but mucosa of colon segment seen well. 3 = Entire mucosa of colon segment seen well with no residual staining, small fragments of stool or opaque liquid) Impression and Post Procedure Diagnosis: Endoscopy Findings: hiatal hernia gastritis and uclers with erosions erosive esophagitis Colonoscopy Findings: internal hemorrhoids diverticular disease Plan: Await Pathology results Repeat Colonoscopy in not indicated given age and co morbidities unless clinically indicated High fiber diet leaflet avoid straining at stool, epsom salts and sitz bath, anusol supps or cream commence on pantoprazole 40 mg daily, can use carafate 1 g liquid PO BID for 2 weeks Above findings were reviewed with the patient and relevant handouts were provided if indicated.
--- NOTE | 2021-04-17 11:45 | PC.NURSE ---
10:08am Pt Provided with 2 fleet enemas per order. Incontinence care provided. Per night nurse pt drank 24oz of GoLyttely. Endo nurse made aware.
--- NOTE | 2021-04-17 15:19 | PM.DS ---
DS: Providers Provider Date of Service: 04/17/21 Date of admission: 04/13/21 23:16 Primary care physician: Unknown Physician Consults: 04/13/21 23:13 Consult to Gastroenterology Routine Consulting Provider: La Naylor Reason for consultation: acute anemia w guaiac positive stools Has provider been notified: No DS: Diagnosis Discharge Diagnosis (1) GI (gastrointestinal bleed): Status: Acute (2) Paranoid schizophrenia: Status: Acute DS: Summary Hospital Course Hospital Course: 81-year-old female who presents to the hospital from group home with abnormal labs found to have microcytic anemia as well as occult stool positive. Admitted..transfused with good response in counts. 04/17/EGD/Colon done by GI. Erosive esophagitis Dx...treatment as ordered. Time Spent with Patient Time attestation: Total time spent providing and/or coordinating discharge services: Discharge coordination time: Greater than 30 minutes Quality: Stroke Does the patient have a stroke diagnosis?: No Physical Exam Vital Signs: Vital Signs: Last Vital Signs Temp 97.3 F 04/17/21 12:56 Pulse 73 04/17/21 15:05 Resp 18 04/17/21 15:05 BP 152/72 H 04/17/21 15:05 Pulse Ox 97 04/17/21 15:05 Oxygen Flow Rate 2 04/13/21 18:49 BMI result Body Mass Index 26.9 DS: Data Data Completed and Pending Pending studies at discharge: Pending at discharge 04/17/21 12:01 Surgical [PTH] Routine Labs on day of discharge: Laboratory Results - last 24 hr 04/17/21 04/17/21 06:54 06:54 WBC 6.9 RBC 4.49 Hgb 10.0 L Hct 34.0 L MCV 75.7 L MCH 22.3 L MCHC 29.4 L RDW 24.9 H Plt Count 289 MPV 9.2 L Immature Gran % (Auto) 0.3 Neut % (Auto) 57.1 Lymph % (Auto) 26.8 [place] % (Auto) 13.2 H Eos % (Auto) 2.2 Baso % (Auto) 0.4 Lymph # (Auto) 1.9 [place] # (Auto) 0.9 Eos # (Auto) 0.2 Baso # (Auto) 0.0 Abs Immat Gran (auto) 0.02 Absolute Neuts (auto) 3.9 Absolute Nucleated RBC 0.000 Nucleated RBC % (auto) 0.0 Sodium 143 Potassium 3.8 D Chloride 103 Carbon Dioxide 34 H Anion Gap 10 L BUN 7 L Creatinine 0.59 Estim Creat Clear Calc 62.1 Estimated GFR > 60 Fasting Glucose 84 Calcium 8.5 Total Bilirubin 0.2 AST 11 ALT 10 Alkaline Phosphatase 168 H Total Protein 6.3 L Albumin 3.3 L Discharge Plan Discharge Patient Disposition: Xfer Inpatient Rehab Fac Discharge Diagnosis: erosive gastritis Referrals: Physician,Unknown J [Primary Care Provider] - 1 Week Discharge Medications: New sucralfate [Carafate] 100 mg/mL suspension 10 ml PO QID 14 Days Qty: 560 0RF Rx Instructions: swish in mouth and swallow; use after food/drink pantoprazole [Protonix] 40 mg tablet,delayed release (DR/EC) 40 mg PO DAILY 56 Days Qty: 56 0RF Continued (DME) Al-Mag w/ SIM 30ml liquid 0RF Label Comments: ? milk of MAG? lamotrigine 150 mg Tablet 75 mg PO BID 0RF acetaminophen [Tylenol] 325 mg Tablet 650 mg PO Q6H PRN (Reason: Pain) 0RF acetaminophen 650 mg Suppository 650 mg [place] Q6H PRN (Reason: Pain) 0RF clonazepam [Klonopin] 1 mg Tablet 1 mg PO BEDTIME 0RF olanzapine [Zyprexa] 10 mg Tablet 10 mg PO DAILY 0RF phenytoin [Dilantin Infatabs] 50 mg Tablet,Chewable 300 mg PO DAILY 0RF risperidone 2 mg Tablet 2 mg PO BID 0RF magnesium hydroxide [Milk of Magnesia] 400 mg/5 mL Suspension 30 ml PO DAILY PRN (Reason: Constipation) 0RF bisacodyl 10 mg Suppository 10 mg UT DAILY PRN (Reason: Constipation) 0RF aspirin 81 mg Tablet,Chewable 81 mg PO DAILY 0RF polyethylene glycol 3350 17 gram/dose Powder 17 g PO DAILY 0RF albuterol sulfate 90 mcg/actuation Hfa Aerosol Inhaler 2 inh INHALATION QID PRN (Reason: Wheezing) 0RF olanzapine [Zyprexa] 20 mg Tablet 20 mg PO QPM 0RF Risperdal Consta 50 mg/2 mL Suspension,Extended Rel Recon 50 mg IM Q14D 0RF gabapentin 400 mg Tablet 400 mg PO BID 0RF Diet: advance to usual diet Activity on Discharge: As tolerated Stand Alone Forms: Patient Portal Discharge page Care Plan Goals: Carafate/protonix a ordered Health Concerns: Follow Hgb weekly Plan of Treatment: Meds/follow up Assessment: as per DC summary
--- NOTE | 2021-04-17 15:25 | HO.PM.IMPN ---
Subjective Subjective Date of Service: 04/17/21 Interval History: No acute issues overnight...no overt bleeding noted. EGD/Colon today Review of Systems Denies CP Denies SOB Denies N/V/D Physical Exam Vital Signs: Vital Signs: Last Vital Signs Temp 97.3 F 04/17/21 12:56 Pulse 73 04/17/21 15:05 Resp 18 04/17/21 15:05 BP 152/72 H 04/17/21 15:05 Pulse Ox 97 04/17/21 15:05 Oxygen Flow Rate 2 04/13/21 18:49 BMI result Body Mass Index 26.9 Const: Other: no acute distress Resp: Other: clear A/P Cardio: Other: -S4 +S1/S2 -S3 M/R/G GI: Other: soft NABS x 4 quads Extrem: Other: no edema Objective Data Active Medications Acetaminophen (Acetaminophen 325 Mg Tablet) 650 mg PO Q6H PRN PRN Reason: Pain, Mild (Pain Scale 1-3) Albuterol Sulfate (Albuterol Sulfate 90 Mcg 8 Gm Inhaler) 2 puff INHALE QID PRN PRN Reason: Wheezing Aspirin (Aspirin 81 Mg Tab.Chew) 81 mg PO DAILY REPLACED BY [facility] Last Admin: 04/17/21 10:14 Dose: Not Given Documented by: RUDDY Non-Admin Reason: See Note Clonazepam (Clonazepam 0.5 Mg Tablet) 1 mg PO BEDTIME REPLACED BY [facility] Last Admin: 04/16/21 20:53 Dose: 1 mg Documented by: ALFA Docusate Sodium (Docusate Sodium 100 Mg Capsule) 100 mg PO DAILY PRN PRN Reason: Constipation Gabapentin (Gabapentin 400 Mg Capsule) 400 mg PO BID REPLACED BY [facility] Last Admin: 04/17/21 10:15 Dose: Not Given Documented by: RUDDY Non-Admin Reason: See Note Comments: hold pt going to endo Lactated Ringer's (Lr) 1,000 mls @ 100 mls/hr IVCONT .Q10H REPLACED BY [facility] Last Admin: 04/17/21 11:36 Dose: 100 mls/hr Documented by: MARY GRACE Lamotrigine (Lamotrigine 25 Mg Tablet) 75 mg PO BID REPLACED BY [facility] Last Admin: 04/17/21 10:15 Dose: Not Given Documented by: RUDDY Non-Admin Reason: See Note Comments: hold pt going to endo Magnesium Hydroxide (Milk Of Magnesia 30 Ml Oral.Susp) 30 ml PO DAILY PRN PRN Reason: Constipation Non-Formulary Medication (Risperidone Microspheres [Risperdal Consta]) 50 mg IM Q14D REPLACED BY [facility] Olanzapine (Olanzapine 10 Mg Tablet) 10 mg PO DAILY REPLACED BY [facility] Last Admin: 04/17/21 10:15 Dose: Not Given Documented by: RUDDY Non-Admin Reason: See Note Olanzapine (Olanzapine 10 Mg Tablet) 20 mg PO BEDTIME REPLACED BY [facility] Last Admin: 04/16/21 20:53 Dose: 20 mg Documented by: ALFA Ondansetron HCl (Ondansetron Hcl 4 Mg/2 Ml Vial) 4 mg IVPUSH Q8H PRN PRN Reason: Nausea and Vomiting Phenytoin (Phenytoin Chewable 50 Mg Tab.Chew) 300 mg PO DAILY REPLACED BY [facility] Last Admin: 04/17/21 10:16 Dose: Not Given Documented by: RUDDY Non-Admin Reason: See Note Comments: hold pt going to endo Risperidone (Risperidone 2 Mg Tablet) 2 mg PO BID REPLACED BY [facility] Last Admin: 04/17/21 10:16 Dose: Not Given Documented by: RUDDY Non-Hina Reason: See Note Sodium Biphosphate/Sodium Phosphate (Sodium Phosphate,[place]-Dibasic 133 Ml Enema) 133 ml DE ONCE PRN PRN Reason: Consult order Last Admin: 04/17/21 11:30 Dose: 133 ml Documented by: MARY GRACE Sodium Chloride (0.9 % Sodium Chloride Flush 3 Ml Syringe) 3 ml IVFLUSH QSHIFT REPLACED BY [facility] Last Admin: 04/17/21 10:12 Dose: 3 ml Documented by: RUDDY Labs CBC & Chem 7: 04/17/21 06:54 04/17/21 06:54 Labs: Laboratory Results - last 24 hr 04/17/21 04/17/21 06:54 06:54 MCV 75.7 L MCH 22.3 L MCHC 29.4 L RDW 24.9 H Plt Count 289 MPV 9.2 L Immature Gran % (Auto) 0.3 Neut % (Auto) 57.1 Lymph % (Auto) 26.8 [place] % (Auto) 13.2 H Eos % (Auto) 2.2 Baso % (Auto) 0.4 Lymph # (Auto) 1.9 [place] # (Auto) 0.9 Eos # (Auto) 0.2 Baso # (Auto) 0.0 Abs Immat Gran (auto) 0.02 Absolute Neuts (auto) 3.9 Absolute Nucleated RBC 0.000 Nucleated RBC % (auto) 0.0 Anion Gap 10 L Estim Creat Clear Calc 62.1 Estimated GFR > 60 Fasting Glucose 84 Calcium 8.5 Total Bilirubin 0.2 AST 11 ALT 10 Alkaline Phosphatase 168 H Total Protein 6.3 L Albumin 3.3 L Assessment and Plan (1) GI (gastrointestinal bleed): Status: Acute (2) Paranoid schizophrenia: Status: Acute Plan 81-year-old female who presents to the hospital from senior care with abnormal labs found to have microcytic anemia as well as occult stool positive 1.GIB w/ acute microcytic anemia - Hgb stable - EGD/Colon....erosive gastritis. Recommendations: Protonix/Carafate. Orders in -follow CBC -DC in am 2.Paranoid Schizophrenia - continue outpatient therapies DVT prophylaxis: SCDs Quality Stroke Does the patient have a stroke diagnosis?: No VTE Prior VTE?: No VTE Risk Level:: Medical - moderate - high VTE Device Contraindication: N/A - Device Ordered VTE Drug Contraindication: Treatment Not Indicated
--- NOTE | 2021-04-17 15:50 | MHC.CM.PN ---
Addendum entered by Yen Castro 04/17/21 16:04: Patient's HCP, Nevin, made aware via telephone. Addendum entered by Yen Castro 04/17/21 15:55: Received notification that patient can return to [facility]. BLS transport booked for 5pm. [facility] with chart. Original Note: Received notification from Dr Duncan that patient could potentially discharge back to [facility]. T/W reached out to [facility]. Have not received communication back yet. Will anticipate patient will return to [facility] on 04/18. Dr Duncan aware and agreeable. Continue to monitor for d/c needs.
--- NOTE | 2021-04-17 16:34 | PC.NURSE ---
Pt incontinent of urine. Care provided, pt repositioned in the bed with ax1.
--- NOTE | 2021-04-17 17:55 | PC.NURSE ---
Report given to EMS, care transferred at this time. Pt heading back to facility.
--- NOTE | 2021-04-18 09:18 | P.CDIR_ITS ---
Documented by User: Rach Brunson CCS, CDIS 04/18/21 09:23 Retrospective Query PHYSICIAN'S DOCUMENTATION REQUEST Date of Query: 04/18/21918 Patient Name: Nancy Arroyo Admit Date: 04/13/21 Dear Doctor, A review of the medical record indicates additional documentation may be needed. Please review below and update the documentation accordingly. Clinical Indicators: Risk Factors/Clinical Indicators/Treatments Shortness of breath, dizziness, GI bleed likely due to anemia. Occult positive stool. HGB dropped from 11.9 to 5.9 HCT 20.8 Transfused 2 units of PRBC with good results. GI note - Iron deficiency anemia probably slow loss. Based on the above, could you clarify in the Progress Notes which of the following is the most likely type of anemia you are evaluating, treating, and/or monitoring? * Chronic iron deficiency anemia secondary to acute blood loss * Acute on chronic iron deficiency 2nd to blood loss * Other ? please specify * Unable to determine Use of terms such as suspected, likely, concern for, or probable (associated with a specific diagnosis that is being evaluated, monitored, or treated as if it exists) are acceptable and can be coded in the inpatient setting, when documented at the time of discharge. Thank you, Rach Brunson CCS, CDIS Extension: [phone] Please use your independent medical judgment in providing your response. THIS QUERY IS PART OF THE PERMANENT MEDICAL RECORD Documented by User: Braulio Duncan DO 04/22/21 15:37 Retrospective Query Provider Response: Other (chronic iron defieciencty anemia secondary to blood loss)
== END 2021-04-17 18:07 | DRG 368 ==
LOC: HO.ED 23:11 → HO.EDOVER 23:35
PROVIDERS: Internal Medicine Gastroenterology; Admitting Provider Internal Medicine; Emergency Provider Internal Medicine; Visit Provider Hospitalist
PROC: 0DB98ZX Excision of Duodenum, Via Natural or Artificial Opening Endoscopic, Diagnostic (ICD-10-PCS; principal; 2021-04-17 11:20)
DX: K21.01 Gastro-esophageal reflux disease with esophagitis, with bleeding (principal); K29.71 Gastritis, unspecified, with bleeding; K25.4 Chronic or unspecified gastric ulcer with hemorrhage; K57.31 Diverticulosis of large intestine without perforation or abscess with bleeding; I51.0 Cardiac septal defect, acquired; F20.0 Paranoid schizophrenia; I25.10 Atherosclerotic heart disease of native coronary artery without angina pectoris; E78.5 Hyperlipidemia, unspecified; D50.0 Iron deficiency anemia secondary to blood loss (chronic); K64.0 First degree hemorrhoids; K44.9 Diaphragmatic hernia without obstruction or gangrene; Z20.822 Contact with and (suspected) exposure to COVID-19; Z79.82 Long term (current) use of aspirin; Z79.899 Other long term (current) drug therapy
CPT/HCPCS: 36415; 36430; 80048; 80053; 80076; 82272; 82728; 83540; 85025; 85610; 85730; 86850; 86900; 86901; 86923; 87635; 88305; 88342; 96374; 99285; P9016

== ENCOUNTER 2022-05-02 00:22 | Emergency (ER) | payer MEDICARE, MEDICAID, SELFPAY ==
--- NOTE | ~2022-05-02 | XR_ITS ---
EXAMINATION: XR PELVIS CLINICAL INFORMATION: Fall, right groin pain COMPARISON: None TECHNIQUE: AP view of the pelvis. FINDINGS: Partially visualized hardware in the right femur. Alignment across the hips is anatomic with mild to moderate joint space narrowing and acetabular spurring. There is chronic appearing deformity of the right inferior pubic ramus, more suggestive of healed old injury. No acute fracture is seen. Mild degenerative change at the pubic symphysis. Sacroiliac joints appear intact. XR/XR pelvis 1-2V IMPRESSION: No acute findings identified. Chronic appearing changes as noted above.
--- NOTE | ~2022-05-02 | CT_ITS ---
EXAMINATION: NONCONTRAST HEAD CT NONCONTRAST CERVICAL SPINE CT INDICATION INFORMATION: Fall COMPARISON: 08/30/2020 TECHNIQUE: Separate noncontrast CT examinations of the head and cervical spine were performed. Coronal head CT images and coronal and sagittal cervical spine images were created at the technologist workstation. DLP: 884 mGy-cm DOSE LOWERING TECHNIQUES: This CT examination was performed using dose optimization techniques as appropriate, variously including the following: - Automated exposure control - Adjustment of mA and/or kV according to patient size (this includes techniques or standardized protocols for targeted exams were dose is matched to indication/reason for exam; i.e. extremities or head) - Use of iterative reconstruction technique FINDINGS: Head: There is no evidence of acute intracranial hemorrhage or territorial infarction. No abnormal mass-effect or midline shift is seen. Roland to white matter differentiation is well preserved. No extra-axial fluid collections are identified. The ventricles are normal in size. There is mild periventricular white matter hypoattenuation consistent with chronic small vessel ischemic disease. Moderate volume loss is noted. The osseous structures and soft tissues are normal. The mastoid air cells and visualized portions of the paranasal sinuses are well-aerated. Cervical spine: There is anatomic alignment of the vertebral bodies and posterior elements. Vertebral body heights are maintained. There is disc space narrowing and osteophyte formation in the mid to lower cervical spine. Moderate bilateral facet arthropathy is noted. There is degenerative change at the atlantodens articulation. No evidence of acute fracture. No prevertebral soft tissue swelling. Visualized portions of the lung apices demonstrate emphysema. The thyroid gland is unremarkable. CT/CT cervical spine wo IV con IMPRESSION: HEAD: No acute intracranial findings. CERVICAL SPINE: No acute findings identified. Degenerative changes as noted above.
--- NOTE | ~2022-05-02 | XR_ITS ---
EXAMINATION: XR LUMBOSACRAL SPINE CLINICAL INFORMATION: Fall, pain COMPARISON: None TECHNIQUE: Three views of the lumbosacral spine. FINDINGS: Limited visualization of the lumbar spine on the lateral view. There is chronic appearing loss of vertebral body heights in the region of the thoracolumbar junction. No definite acute fracture is seen, though assessment for this is limited radiographically. Alignment appears grossly preserved. Sacroiliac joints appear intact. Vascular calcification is present. XR/XR lumbar spine 2-3V IMPRESSION: Chronic appearing changes as described above. No definite acute findings, though assessment is limited radiographically due to suboptimal visualization.
[2022-05-02 00:31] VITALS: BP 130/57; BP 142/60; PULSE 82; PULSE 85; RESP 18; TEMP 36.5; O2SAT 98; O2SAT 99; BMI 25.7
--- NOTE | 2022-05-02 00:36 | ED.FALL ---
HPI - Fall General Chief Complaint: Fall Stated Complaint: MID BACK PAIN AFTER FALL Time Seen by Provider: 05/02/22 00:35 Source: patient Mode of arrival: ambulatory Limitations: no limitations History of Present Illness HPI Narrative: Patient 82 years old with history of hypertension central tremor paranoid schizophrenia uses wheelchair for ambulation was in her room in nursing trying to get up to reach to the wheelchair lost balance and fell complaining of pain in the right groin and back hit the head to the ground no loss of consciousness fall was unwitnessed but patient is pretty alert and oriented aware of the surrounding patient denying any other significant complaints does have chronic back pain no chest pain or palpitation or seizure Related Data Home Medications Medication Instructions Recorded Confirmed Al-Mag w/ SIM 08/30/20 04/13/21 acetaminophen 325 mg tablet 650 mg PO Q6H PRN Pain 08/30/20 04/13/21 (Tylenol) acetaminophen 650 mg rectal 650 mg [place] Q6H PRN Pain 08/30/20 04/13/21 suppository albuterol sulfate 90 mcg/actuation 2 inh inhalation QID PRN Wheezing 08/30/20 04/13/21 aerosol inhaler aspirin 81 mg chewable tablet 81 mg PO DAILY 08/30/20 04/13/21 bisacodyl 10 mg rectal suppository 10 mg [place] DAILY PRN Constipation 08/30/20 04/13/21 clonazepam 1 mg tablet (Klonopin) 1 mg PO BEDTIME 08/30/20 04/13/21 gabapentin 400 mg tablet 400 mg PO BID 08/30/20 04/13/21 lamotrigine 150 mg tablet 75 mg PO BID 08/30/20 04/13/21 magnesium hydroxide 400 mg/5 mL 30 ml PO DAILY PRN Constipation 08/30/20 04/13/21 oral suspension (Milk of Magnesia) olanzapine 10 mg tablet (Zyprexa) 10 mg PO DAILY 08/30/20 04/13/21 olanzapine 20 mg tablet (Zyprexa) 20 mg PO QPM 08/30/20 04/13/21 phenytoin 50 mg chewable tablet 300 mg PO DAILY 08/30/20 04/13/21 (Dilantin Infatabs) polyethylene glycol 3350 17 17 g PO DAILY 08/30/20 04/13/21 gram/dose oral powder risperidone 2 mg tablet 2 mg PO BID 08/30/20 04/13/21 risperidone microspheres 50 mg/2 50 mg IM Q14D 08/30/20 04/13/21 mL intramuscular susp,ext release (Risperdal Consta) Previous Rx's Medication Instructions Recorded pantoprazole 40 mg tablet,delayed 40 mg PO DAILY 8 weeks #56 tabs 04/17/21 release (Protonix) sucralfate 100 mg/mL oral 10 ml PO QID 2 weeks #560 mL 04/17/21 suspension (Carafate) Allergies Allergy/AdvReac Type Severity Reaction Status Date / Time divalproex sodium Allergy Unknown UNKNOWN Verified 08/30/20 06:22 [facility] Review of Systems Review of Systems: Yes all other systems are reviewed and are negative [facility] Past Medical History Medical History Atherosclerotic heart disease of [place] coronary artery with unspecified angina pectoris Bilateral cataracts Candidiasis of skin and nail Constipation COPD (chronic obstructive pulmonary disease) COVID-19 vaccine administered Degenerative disease of nervous system Diaphragmatic hernia DNI (do not intubate) DNR (do not resuscitate) Dysphagia Essential tremor Family history of diseases of the blood and blood-forming organs and certain disorders involving the immune mechanism GERD (gastroesophageal reflux disease) HTN (hypertension) Hyperlipidemia Incontinence Iron deficiency anemia Overactive bladder Paranoid schizophrenia Postmenopausal atrophic vaginitis Urinary tract infection Urine retention Vitamin B12 deficiency (dietary) anemia Vitamin D deficiency Surgical History No pertinent past surgical history Family History Family History Other No family history of coronary artery disease Social History Social History Household Members: None Housing: Prison Unable to assess alcohol history related to: Unknown Patient Tobacco Use Status: Never used Tobacco Smoked in Last 30 Days: No Use of substances other than those prescribed or required for medical reasons: No Advance Directives: Yes Advance Directives on File: Yes Advance Directives Date on File: 09/05/20 service: No Current occupational status: retired Physical Exam Vital Signs: Vital Signs: Last Vital Signs Temp 98.6 F 05/02/22 04:17 Pulse 81 05/02/22 04:17 Resp 18 05/02/22 04:17 BP 118/42 L 05/02/22 04:17 Pulse Ox 98 05/02/22 04:17 O2 Del Method 05/02/22 04:17 O2 Flow Rate 3 05/02/22 04:17 Oxygen Flow Rate 2 05/02/22 00:31 BMI result Body Mass Index 25.7 Appearance: Alert. Oriented X3. No acute distress. Eyes: PERRLA, No Nystagmus ENT: Pharynx normal. Oral Mucosa moist, AT NC Neck: Normal inspection. Neck supple. CVS: Normal heart rate and rhythm. Pulses normal. Respiratory: No respiratory distress. Equal air entry bilateral, no wheezing/rales/rhonchi Abdomen: Soft and nontender. Bowel sounds are present, no mass palpable, no CVA tenderness Skin: Skin warm and dry. Normal skin color. Normal skin turgor. Extremities: No lower extremity edema. No calf tenderness mild tenderness right groin area, no deformity Neuro: Oriented X 3. No motor deficit. No sensory deficit.No cerebellar signs , cranial nerves II-XII intact Medical Decision Making Medical Decision Making MDM Narrative: Patient's sister was mechanical fall with no sign of significant injuries head CT C-spine negative x-ray of the pelvis also negative for any fracture Independent Interpretation I performed an independent interpretation of an: EKG Interpretation: Heart rate 81 beats per minute normal sinus rhythm LVH no acute ST changes no acute ischemia Discharge Plan Discharge Clinical Impression: Fall Patient Disposition: Xfer SNF Transfer Details: CT scan of the head cervical spine negative, x-ray of the lumbar spine and pelvis negative for acute fracture Instructions: Fall Prevention for Older Adults (ED) Additional Instructions: Care and cautions as advised Prescriptions: No Action (DME) Al-Mag w/ SIM 30ml liquid Label Comments: ? milk of MAG? lamotrigine 150 mg Tablet 75 mg PO BID acetaminophen [Tylenol] 325 mg Tablet 650 mg PO Q6H PRN (Reason: Pain) acetaminophen 650 mg Suppository 650 mg [place] Q6H PRN (Reason: Pain) clonazepam [Klonopin] 1 mg Tablet 1 mg PO BEDTIME olanzapine [Zyprexa] 10 mg Tablet 10 mg PO DAILY phenytoin [Dilantin Infatabs] 50 mg Tablet,Chewable 300 mg PO DAILY risperidone 2 mg Tablet 2 mg PO BID magnesium hydroxide [Milk of Magnesia] 400 mg/5 mL Suspension 30 ml PO DAILY PRN (Reason: Constipation) bisacodyl 10 mg Suppository 10 mg [place] DAILY PRN (Reason: Constipation) aspirin 81 mg Tablet,Chewable 81 mg PO DAILY polyethylene glycol 3350 17 gram/dose Powder 17 g PO DAILY albuterol sulfate 90 mcg/actuation Hfa Aerosol Inhaler 2 inh INHALATION QID PRN (Reason: Wheezing) olanzapine [Zyprexa] 20 mg Tablet 20 mg PO QPM Risperdal Consta 50 mg/2 mL Suspension,Extended Rel Recon 50 mg IM Q14D gabapentin 400 mg Tablet 400 mg PO BID sucralfate [Carafate] 100 mg/mL suspension 10 ml PO QID 14 Days Qty: 560 0RF Rx Instructions: swish in mouth and swallow; use after food/drink pantoprazole [Protonix] 40 mg tablet,delayed release (DR/EC) 40 mg PO DAILY 56 Days Qty: 56 0RF Interventions: ED Discharge Assessment Last Done: 05/02/22 04:55 Discharge Date/Time: 05/02/22 04:57
--- NOTE | 2022-05-02 00:43 | ECG_ITS ---
Test Reason : FALL Blood Pressure : / mmHG Vent. Rate : 081 BPM Atrial Rate : 081 BPM P-R Int : 174 ms QRS Dur : 078 ms QT Int : 392 ms P-R-T Axes : 038 013 033 degrees QTc Int : 455 ms Normal sinus rhythm Low voltage QRS Cannot rule out Anteroseptal infarct (cited on or before 21-MAR-2009) Abnormal ECG When compared with ECG of 30-AUG-2020 03:00, No significant change was found Referred By: Luis Fernando Robles Electronically Signed By:FLORENTIN CORADO MD
--- NOTE | 2022-05-02 00:53 | PC.NURSE ---
pt robbiea from [facility]. pt remains in collar. pt a+o x3 iv placed [address] centeno at pt bedside upon pt arrival. pt awaiting imaging at this time
--- NOTE | 2022-05-02 01:49 | PC.NURSE ---
pt returned from imaging. ekg obtained and signed off by dr centeno
[2022-05-02 02:30] VITALS: BP 130/55; PULSE 73; RESP 18; O2SAT 100
[2022-05-02 04:17] VITALS: BP 118/42; PULSE 81; RESP 18; TEMP 37; O2SAT 98
--- NOTE | 2022-05-02 04:54 | PC.NURSE ---
this rn called [facility]. gave nurse to nurse report for expect back to facility. informed of discharge plan. informed that discharge packet will be sent back to facility. ems provided report upon arrival to transport pt back to [facility] [place]. pt denies pain at this time. iv removed at this time. skin pwd. vss
== END 2022-05-02 04:57 | disposition skilled nursing facility (03) ==
PROVIDERS: Emergency Provider Internal Medicine; PCP Emergency Medicine
DX: S39.92XA Unspecified injury of lower back, initial encounter (principal); M54.50 Low back pain, unspecified; R10.2 Pelvic and perineal pain; R51.9 Headache, unspecified; M54.2 Cervicalgia; F20.0 Paranoid schizophrenia; W05.0XXA Fall from non-moving wheelchair, initial encounter; Y93.9 Activity, unspecified; Y92.9 Unspecified place or not applicable; Y99.9 Unspecified external cause status; Z79.899 Other long term (current) drug therapy
CPT/HCPCS: 70450; 72100; 72125; 72170; 93005; 99284